=== PATIENT | male | born 2000 | race Caucasian/White ===

== ENCOUNTER 2018-05-07 20:42 | Observation (INO) | payer SELFPAY ==
[~2018-05-07] VITALS: Ht 177.8 cm; Wt 64.2 kg
[~2018-05-07 20:42] MED LIST: SULF1TAB35 PO
--- OUTSIDE RECORDS SUMMARY | 2018-05-07 20:48 | XMS REPORT ---
Author RAFAEL De Leon [facility] eClinicalWorks Address Unknown Phone Unavailable Care Team Providers Care Computational Chemist Name Role Phone RAFAEL LENNON CP Unavailable Allergies No Known Allergies Problems Problem Type Condition Code Onset Dates Condition Status Problem Impetigo 684 Active Problem Unspecified viral infection, in conditions classified elsewhere and of unspecified site 079.99 Active Problem Unspecified viral exanthem 057.9 Active Assessment Dental examination Z01.20 Active Problem Acute sinusitis, unspecified 461.9 Active Problem Cough 786.2 Active Medications No Known Medications Procedures Procedure Coding System Code Date TOPICAL FLUORIDE VARNISH CPT-4 D1206 Apr 06, 2015 PROPHYLAXIS - ADULT CPT-4 D1110 Apr 06, 2015 Results No Known Results Summary Purpose eClinicalWorks Submission
--- OUTSIDE RECORDS SUMMARY | 2018-05-07 20:49 | XMS REPORT | Continuity of Care Document ---
Author Author [facility] Address Unknown Phone Unavailable Allergies Active Description Code Type Severity Reaction Onset Reported/Identified Relationship to Patient Clinical Status Yes Penicillins Drug Allergy N/A N/A 04/29/2013 Yes No Known Drug Allergies [id number] Drug Allergy Unknown N/A 12/18/2015 Medications There is no data. Problems Date Dx Coded Attending Type Code Diagnosis Diagnosed By 04/29/2013 NATHAN AREVALO MD S 057.9 VIRAL EXANTHEM UNSPECIFIED 04/29/2013 NATHAN AREVALO MD S 684 IMPETIGO 04/29/2013 NATHAN AREVALO MD 057.9 VIRAL EXANTHEM UNSPECIFIED 04/29/2013 NATHAN AREVALO MD S 684 IMPETIGO 04/29/2013 TONI MARTIN DOA K 057.9 VIRAL EXANTHEM UNSPECIFIED 04/29/2013 MARTIN DO, THOMPSON K 684 IMPETIGO 04/29/2013 TONI MARTIN DOA K 057.9 VIRAL EXANTHEM UNSPECIFIED 04/29/2013 MARTIN DO THOMPSON K 684 IMPETIGO 04/29/2013 KATIUSKA CULTURE MANAGERAMALIA Foster L 057.9 VIRAL EXANTHEM UNSPECIFIED 04/29/2013 EATSANDRA CULTURE MANAGERNITISH FosterSON L 684 IMPETIGO 05/06/2013 TONI MARTIN DOA K 079.99 VIRAL SYNDROME 05/06/2013 MARTIN TONI DUDLEYA K 079.99 VIRAL SYNDROME 05/06/2013 EATON CULTURE MANAGERNITISH FosterSON L 079.99 VIRAL SYNDROME 06/21/2013 TONI MARTIN DOA K 461.9 SINUSITIS ACUTE 06/21/2013 MARTIN TONI DUDLEYA K 786.2 COUGH 06/21/2013 EATSANDRA CULTURE MANAGERAMALIA Foster L 461.9 SINUSITIS ACUTE 06/21/2013 EATON AMALIA BOJORQUEZ 786.2 COUGH 12/18/2015 KATHARINE KRUGER DO Ot R22.2 LOCALIZED SWELLING, MASS AND LUMP, TRUNK 12/18/2015 SASKIA KATHARINE DUDLEY Ot R59.0 LOCALIZED ENLARGED LYMPH NODES 12/18/2015 SASKIA KATHARINE DUDLEY Ot S10.91XA ABRASION OF UNSPECIFIED PART OF NECK, IN 12/18/2015 KATHARINE KRUGER DO Ot X58.XXXA EXPOSURE TO OTHER SPECIFIED FACTORS, INI 12/18/2015 KATHARINE KRUGER DO Ot Y92.[address] IN [facility] NON-INSTITUT (PRIVATE 12/18/2015 SASKIA KATHARINE DUDLEY Ot Y99.8 OTHER EXTERNAL CAUSE STATUS 12/21/2015 SASKIA KATHARINE DUDLEY Ot R22.2 LOCALIZED SWELLING, MASS AND LUMP, TRUNK 12/21/2015 SASKIA KATHARINE DUDLEY Ot R59.0 LOCALIZED ENLARGED LYMPH NODES 12/21/2015 KATHARINE KRUGER DO Ot S10.91XA ABRASION OF UNSPECIFIED PART OF NECK, IN 12/21/2015 KATHARINE KRUGER DO Ot X58.XXXA EXPOSURE TO OTHER SPECIFIED FACTORS, INI 12/21/2015 KATHARINE KRUGER DO Ot Y92.[address] IN [facility] NON-INSTITUT ([facility] 12/21/2015 SASKIA DUDLEY, KATHARINE K Ot Y99.8 OTHER EXTERNAL CAUSE STATUS Procedures There is no data. Results There is no data. Encounters ACCT No. Visit Date/Time Discharge Status Pt. Type Provider Facility Loc./Unit Complaint [id number] 07/24/2013 16:49:00 07/24/2013 23:59:59 [facility] Outpatient KATIUSKA MARYELLEN AMALIA L [id number] 06/21/2013 11:18:00 06/21/2013 23:59:59 [facility] Outpatient THOMPSON MARTIN DO [id number] 05/06/2013 11:21:00 05/06/2013 23:59:59 C[facility] Outpatient THOMPSON MARTIN DO [id number] 05/02/2013 14:42:00 05/02/2013 23:59:59 CLS Outpatient NATHAN AREVALO MD [id number] 04/29/2013 15:47:00 04/29/2013 23:59:59 [facility] Outpatient NATHAN AREVALO MD [id number] 12/18/2015 21:51:00 12/18/2015 22:48:00 DIS Emergency KATHARINE KRUGER DO Via [facility] ER BUMP ON NECK
[2018-05-07 21:45] LABS: BASOPHILS % (AUTO) 0 % (0-10); EOSINOPHILS # (AUTO) 0.1 10^3/uL (0.0-0.3); EOSINOPHILS % (AUTO) 1 % (0-10); HEMATOCRIT 42 % (40-54); HEMOGLOBIN 15.3 G/DL (13.3-17.7); LYMPHOCYTES # (AUTO) 1.5 X 10^3 (1.0-4.0); LYMPHOCYTES % (AUTO) 21 % (12-44); MEAN CORPUSCULAR HEMOGLOBIN 32 PG (25-34); MEAN CORPUSCULAR HGB CONC 37 G/DL (32-36); MEAN CORPUSCULAR VOLUME 86 FL (80-99); MEAN PLATELET VOLUME 10.1 FL (7.4-10.4); MONOCYTES # (AUTO) 0.7 X 10^3 (0.0-1.0); MONOCYTES % (AUTO) 11 % (0-12); NEUTROPHILS # (AUTO) 4.5 X 10^3 (1.8-7.8); NEUTROPHILS % (AUTO) 66 % (42-75); PLATELET COUNT 287 10^3/uL (130-400); RED BLOOD COUNT 4.82 10^6/uL (4.35-5.85); RED CELL DISTRIBUTION WIDTH 11.6 % (10.0-14.5); WHITE BLOOD COUNT 6.8 10^3/uL (4.3-11.0)
[2018-05-07 21:46] LABS: BILIRUBIN,URINE NEGATIVE (NEGATIVE); CLARITY,URINE CLEAR; COLOR,URINE YELLOW; GLUCOSE, URINE (UA) 4+ (NEGATIVE); KETONES,URINE NEGATIVE (NEGATIVE); LEUKOCYTE ESTERASE ,URINE NEGATIVE (NEGATIVE); NITRITE,URINE NEGATIVE (NEGATIVE); PH,URINE 7 (5-9); PROTEIN,URINE NEGATIVE (NEGATIVE); UROBILINOGEN,URINE NORMAL (NORMAL)
[2018-05-07] MEDS ORDERED: IOHEXOL 350 MG/ML 100 ML (OMNIPAQUE 350) VIAL IV ONE (22:00)
[2018-05-07] MEDS ORDERED: RECEIVED CONTRAST (Hold Metformin) IV SCH (22:00)
[2018-05-07] MEDS ORDERED: NS 100 ML (IVPB) BAG IV ONE (22:00)
[2018-05-07 22:04] LABS: ALANINE AMINOTRANSFERASE 19 U/L (0-55); ALBUMIN 4.7 GM/DL (3.2-4.5); ALKALINE PHOSPHATASE 129 U/L (40-136); AMYLASE 43 U/L (25-125); BUN/CREATININE RATIO 9; CALCIUM 9.6 MG/DL (8.5-10.1); CARBON DIOXIDE 23 MMOL/L (21-32); CHLORIDE 96 MMOL/L (98-107); CREATININE SERUM 1.33 MG/DL (0.60-1.30); GFR ESTIMATED > 60; LIPASE 84 U/L (8-78); POTASSIUM 4.2 MMOL/L (3.6-5.0); SODIUM 132 MMOL/L (135-145); TOTAL PROTEIN 7.7 GM/DL (6.4-8.2)
[2018-05-07 22:05] LABS: BACTERIA,URINE NEGATIVE /HPF; RBC,URINE 0-2 /HPF; WBC,URINE RARE /HPF
[2018-05-07 22:08] LABS: GLUCOSE 599 MG/DL (70-105)
[2018-05-07] MEDS: NS IV 1000 ML 1,000 ML IV SCH (22:41)
[2018-05-07] MEDS ORDERED: inSUlin (REGULAR) HUMAN 1 UNIT/0.01 ML (CHARGE PER UNIT) SC ONE (22:45)
--- NOTE | 2018-05-07 23:20 | ED Abdominal Pain ---
General Chief Complaint: Abdominal/GI Problems Stated Complaint: NAUSEA/STOMACH PAIN Nursing Triage Note: Pt ambulated to triage w/o difficulty. Pt reports lower abdominal pain, nausea and fatigue that began approximately one week ago. Pt denies any other symptoms. Pt reports not having a PCP. Source of Information: Patient Exam Limitations: No Limitations History of Present Illness Date Seen by Provider: May 07, 2018 Time Seen by Provider: 21:20 Initial Comments Patient is a 17-year-old male who presents to the emergency room with complaints of nausea, abdominal pain, fatigue that started 1 week ago. He denies any fever vomiting, diarrhea, constipation. He reports that he does not have a primary care provider. Timing/Duration: 1 Week [facility] Radiation: No Radiation Activities at Onset: None Associated Symptoms: Nausea/Vomiting (nausea) Allergies and Home Medications Allergies Uncoded Allergies: PENICILLIN (Allergy, Unknown, 05/07/18) Pt unsure. Siblings are allergic. Home Medications Sulfamethoxazole/Trimethoprim 1 Each Tablet, 1 EACH PO BID Prescribed by: KATHARINE KRUGER on 12/18/15 0588 Patient Home Medication List Home Medication List Reviewed: Yes Review of Systems Review of Systems Constitutional: see HPI; No dizziness, No fever; malaise Gastrointestinal: See HPI, Abdominal Pain; Denies Constipated, Denies Diarrhea ; Nausea; Denies Vomiting All Other Systems Reviewed Negative Unless Noted: Yes Past Ykavlvm-Xsryrj-Bmhqct Hx Past Med/Social Hx: Reviewed Nursing Past Med/Soc Hx Patient Social History Alcohol Use: Denies Use Recreational Drug Use: No Smoking Status: Current Everyday Smoker Type Used: Cigarettes 2nd Hand Smoke Exposure: Yes Recent Foreign Travel: No Contact w/Someone Who Travel: No Recent Infectious Disease Expo: No Recent Hopitalizations: No Ebola Symptoms: Fatigue, Stomach Pain Immunizations Up To Date Tetanus Booster (TDap): Less than 5yrs Seasonal Allergies Seasonal Allergies: No Past Medical History Surgeries: Yes (DENTAL /TEETH PULLED) Respiratory: No Cardiac: No Neurological: No Reproductive Disorders: No Gastrointestinal: No Musculoskeletal: No Endocrine: No Cancer: No Psychosocial: No Integumentary: No Blood Disorders: No Family Medical History Reviewed Nursing Family Hx Physical Exam Vital Signs Vital Signs - First Documented 05/07/18 21:11 Temp 98.4 Pulse 98 Resp 14 B/P (MAP) 117/62 Pulse Ox 91 O2 Delivery Room Air Capillary Refill : Height/Weight/BMI Height: 5'10.00" Weight: 150lbs. oz. 68.823903td; 21.09 BMI Method:Stated General Appearance: WD/WN, no apparent distress HEENT: PERRL/EOMI, normal ENT inspection, TMs normal, pharynx normal Respiratory: chest non-tender, lungs clear, normal breath sounds, no respiratory distress, no accessory muscle use Cardiovascular: normal peripheral pulses, regular rate, rhythm, no edema, no gallop, no JVD, no murmur Gastrointestinal: normal bowel sounds, soft, no organomegaly, no pulsatile mass , tenderness (left lower quadrant tenderness) Extremities: no pedal edema, normal capillary refill Neurologic/Psychiatric: alert, normal mood/affect, oriented x 3 Skin: normal color, warm/dry Progress/Results/Core Measures Results/Orders Lab Results Laboratory Tests Test 05/07/18 21:22 05/07/18 21:30 05/07/18 22:21 Range/Units Urine Color YELLOW Urine Clarity CLEAR Urine pH 7 5-9 Urine Specific [place] 1.010 L 1.016-1.022 Urine Protein NEGATIVE NEGATIVE Urine Glucose (UA) 4+ H NEGATIVE Urine Ketones NEGATIVE NEGATIVE Urine Nitrite NEGATIVE NEGATIVE Urine Bilirubin NEGATIVE NEGATIVE Urine Urobilinogen NORMAL NORMAL MG/DL Urine Leukocyte Esterase NEGATIVE NEGATIVE Urine RBC (Auto) 1+ H NEGATIVE Urine RBC 0-2 /HPF Urine WBC RARE /HPF Urine Crystals NONE /LPF Urine Bacteria NEGATIVE /HPF Urine Casts NONE /LPF Urine Mucus NEGATIVE /LPF Urine Culture Indicated NO White Blood Count 6.8 4.3-11.0 10^3/uL Red Blood Count 4.82 4.35-5.85 10^6/uL Hemoglobin 15.3 13.3-17.7 G/DL Hematocrit 42 40-54 % Mean Corpuscular Volume 86 80-99 FL Mean Corpuscular Hemoglobin 32 25-34 PG Mean Corpuscular Hemoglobin Concent 37 H 32-36 G/DL Red Cell Distribution Width 11.6 10.0-14.5 % Platelet Count 287 130-400 10^3/uL Mean Platelet Volume 10.1 7.4-10.4 FL Neutrophils (%) (Auto) 66 42-75 % Lymphocytes (%) (Auto) 21 12-44 % Monocytes (%) (Auto) 11 0-12 % Eosinophils (%) (Auto) 1 0-10 % Basophils (%) (Auto) 0 0-10 % Neutrophils # (Auto) 4.5 1.8-7.8 X 10^3 Lymphocytes # (Auto) 1.5 1.0-4.0 X 10^3 Monocytes # (Auto) 0.7 0.0-1.0 X 10^3 Eosinophils # (Auto) 0.1 0.0-0.3 10^3/uL Basophils # (Auto) 0.0 0.0-0.1 10^3/uL Sodium Level 132 L 135-145 MMOL/L Potassium Level 4.2 3.6-5.0 MMOL/L Chloride Level 96 L 98-107 MMOL/L Carbon Dioxide Level 23 21-32 MMOL/L Anion Gap 13 5-14 MMOL/L Blood Urea Nitrogen 12 7-18 MG/DL Creatinine 1.33 H 0.60-1.30 MG/DL Estimat Glomerular Filtration Rate > 60 BUN/Creatinine Ratio 9 Glucose Level 599 *H 70-105 MG/DL Calcium Level 9.6 8.5-10.1 MG/DL Corrected Calcium 8.5-10.1 MG/DL Total Bilirubin 1.0 0.1-1.0 MG/DL Aspartate Amino Transf (AST/SGOT) 16 5-34 U/L Alanine Aminotransferase (ALT/SGPT) 19 0-55 U/L Alkaline Phosphatase 129 40-136 U/L Total Protein 7.7 6.4-8.2 GM/DL Albumin 4.7 H 3.2-4.5 GM/DL Amylase Level 43 25-125 U/L Lipase 84 H 8-78 U/L Glucometer 500 *H 70-110 MG/DL My Orders Orders - CHAPO ARMAS Comprehensive Metabolic Panel (05/07/18 21:27) Lipase (05/07/18 21:27) Amylase (05/07/18 21:27) Saline Lock/Iv-Start (05/07/18 21:27) Cbc With Automated Diff (05/07/18 21:27) Ct Abdomen/Pelvis W (05/07/18 21:48) Iohexol Injection (Omnipaque 350 Mg/Ml 1 (05/07/18 22:00) Contrast Received (Contrast Received) (05/07/18 22:00) Ns (Ivpb) (Sodium Chloride 0.9% Ivpb Bag (05/07/18 22:00) Ns Iv 1000 Ml (Sodium Chloride 0.9%) (05/07/18 22:45) Insulin (Regular) Human (Humulin R (Per (05/07/18 22:45) Medications Given in ED Current Medications Medications Dose Ordered Sig/Thu Route Start Time Stop Time Status Last Admin Dose Admin Insulin Human Regular 10 unit ONCE ONCE SC 05/07/18 22:45 05/07/18 22:46 DC 05/07/18 22:46 10 UNIT Iohexol 100 ml ONCE ONCE IV 05/07/18 22:00 05/07/18 22:01 DC 05/07/18 22:12 100 ML Sodium Chloride 80 ml ONCE ONCE IV 05/07/18 22:00 05/07/18 22:01 DC 05/07/18 22:12 80 ML Vital Signs/I&O 05/07/18 21:11 Temp 98.4 Pulse 98 Resp 14 B/P (MAP) 117/62 Pulse Ox 91 O2 Delivery Room Air FSBG Bedside Testing Finger Stick Blood Glucose: 500 Blood Glucose Action Taken: Chapo Armas notified Progress Progress Note : Time: 22:08 Progress Note Lab reports blood glucose of 599 on peripheral blood draw. I informed the patient of this laboratory finding and he reports that he is always thought his blood sugar was low and he would eat something and that it would improve has never had a diagnosis or any testing done. He agrees to insulin subcutaneous at this time. IV fluids were also ordered. 2300: I have discussed the case with Dr. Schmidt at this time. He agrees to admit the patient to hospitalist services with diabetic education consult in the morning in the use of sliding scale insulin. The patient agrees with plan of care and plans for admission. Diagnostic Imaging Diagonstic Imaging: CT Plain Films/CT/US/NM/MRI: abdomen, pelvis Comments See STATRAD Report. Reviewed: Reviewed Night [facility] Study Departure Communication (Admissions) Time/Spoke to Admitting Phy: 23:00 Dr. Schmidt Impression Primary Impression: New onset type 1 diabetes mellitus, uncontrolled Disposition: 01 HOME, SELF-CARE Condition: Stable/Unchanged Admissions Decision to Admit Reason: Admit from ER (General) Decision to Admit/Date: May 07, 2018 Time/Decision to Admit Time: 23:00 Departure-Patient Inst. Referrals: NO,LOCAL PHYSICIAN (PCP/Family) Primary Care Physician CHAPO ARMAS May 07, 2018 23:20
[2018-05-08] MEDS ORDERED: ONDANSETRON 4 MG/2 ML (SDV) Z0FRAN IV PRN (01:45)
[2018-05-08] MEDS ORDERED: ACETAMINOPHEN 500 MG TAB (TYLENOL) PO PRN (01:45)
[2018-05-08] MEDS: NS IV 1000 ML 1,000 ML IV SCH ×3 (02:07→08:51)
[2018-05-08 04:00] VITALS: BP 118/55
[2018-05-08 05:38] LABS: BASOPHILS % (AUTO) 0 % (0-10); EOSINOPHILS # (AUTO) 0.1 10^3/uL (0.0-0.3); EOSINOPHILS % (AUTO) 2 % (0-10); HEMATOCRIT 37 % (40-54); HEMOGLOBIN 13.8 G/DL (13.3-17.7); LYMPHOCYTES # (AUTO) 1.8 X 10^3 (1.0-4.0); LYMPHOCYTES % (AUTO) 22 % (12-44); MEAN CORPUSCULAR HEMOGLOBIN 32 PG (25-34); MEAN CORPUSCULAR HGB CONC 37 G/DL (32-36); MEAN CORPUSCULAR VOLUME 87 FL (80-99); MEAN PLATELET VOLUME 10.1 FL (7.4-10.4); MONOCYTES # (AUTO) 0.9 X 10^3 (0.0-1.0); MONOCYTES % (AUTO) 10 % (0-12); NEUTROPHILS # (AUTO) 5.4 X 10^3 (1.8-7.8); NEUTROPHILS % (AUTO) 66 % (42-75); PLATELET COUNT 274 10^3/uL (130-400); RED BLOOD COUNT 4.25 10^6/uL (4.35-5.85); RED CELL DISTRIBUTION WIDTH 11.8 % (10.0-14.5); WHITE BLOOD COUNT 8.2 10^3/uL (4.3-11.0)
[2018-05-08 05:57] LABS: ALANINE AMINOTRANSFERASE 15 U/L (0-55); ALBUMIN 3.8 GM/DL (3.2-4.5); ALKALINE PHOSPHATASE 95 U/L (40-136); BILIRUBIN,TOTAL 0.7 MG/DL (0.1-1.0); BUN/CREATININE RATIO 11; CALCIUM 8.7 MG/DL (8.5-10.1); CARBON DIOXIDE 22 MMOL/L (21-32); CHLORIDE 104 MMOL/L (98-107); CREATININE SERUM 1.01 MG/DL (0.60-1.30); GFR ESTIMATED > 60; GLUCOSE 371 MG/DL (70-105); POTASSIUM 3.7 MMOL/L (3.6-5.0); SODIUM 135 MMOL/L (135-145)
[2018-05-08] MEDS: inSUlin ASPART (NovoLOG) 1 UNIT/0.01 ML (CHARGE PER UNIT) SC SCH ×3 (06:30→11:13)
[2018-05-08] MEDS ORDERED: FLU QUADRIvalent (5+ YOA) 2018-2019 (AFLURIA) 0.5 ML IM ONE (07:15)
--- NOTE | 2018-05-08 08:06 | Diagnostic Imaging Report ---
PROCEDURE: CT abdomen and pelvis with contrast. TECHNIQUE: Multiple contiguous axial images were obtained through the abdomen and pelvis after administration of intravenous contrast. INDICATION: Abdominal pain, nausea and fatigue. No priors. There is no appendicitis. There is no opaque urinary tract stone. There is no hydronephrosis. Liver, gallbladder and bile ducts, spleen, adrenals, pancreas unremarkable. The gallbladder is contracted. No perienteric or pericolonic edema. No inflammatory process. No bowel obstruction, pneumatosis or free gas. The osseous structures are nonacute. At the most superior cuts of today's exam, there is partial visualization of a sub-solid mixed density nodule in the left lower lobe measuring 12 mm. This may reflect a small focus of pneumonia. Followup radiographs of the chest recommended, however, within 1 to 2 weeks' time. IMPRESSION: 1. No abdominal pelvic abnormality. 2. Left basilar pulmonary nodular density, probably an inflammatory focus but warranting radiographic followup. Dictated by: Dictated on workstation # [id number]
[2018-05-08 08:49] VITALS: BP 124/77
[2018-05-08] MEDS ORDERED: inSUlin DETERMIR 1 UNIT/0.01 ML (LEVEMIR) CHARGE PER UNIT SQ SCH (09:00)
[2018-05-08] MEDS ORDERED: INSU100I14 SQ (10:45)
[2018-05-08] MEDS ORDERED: INSU100I29 SQ (10:45)
--- NOTE | 2018-05-08 10:49 | Discharge Inst-Simple/Standard ---
Discharge Inst-Standard Discharge Medications New, Converted or Re-Newed RX: Transmitted to Pharmacy Patient Instructions/Follow Up Plan of Care/Instructions/FU: Please continue to take your medications as written. It is important to take your insulin everyday. Please follow up with [facility] on 05/10 at 820am as scheduled. Activity as Tolerated: Yes Discharge Diet: ADA Diet Return to The Hospital For: Abdominal pain, nausea, vomiting, confusion, if you feel you are getting worse. Planned Outpatient Orders/Ref. Pneu Vac Indicated: Yes JASON CAMACHO MD May 08, 2018 10:49
--- NOTE | 2018-05-08 10:50 | Short Stay Summary-Hospitalist ---
History of Present Illness HPI/Chief Complaint Pt presented to the ER due to abdominal pain and nausea. He states that his symptoms started 1 week ago and continued to get worse prompting him to seek evaluation in the ER. CT abd/pelvis was negative but he was incidentally found to have a blood glucose of 599 and was admitted for initiation of insulin. He states he knew he had blood sugars problems in the past but never follow up on them and was unsure if it was because his blood sugars were high or low. He denies any family history of diabetes. He denies any other medical problems. He states he feels better today and denies any pain. Source: patient Exam Limitations: no limitations Date Seen 05/08/18 Time Seen by a Provider: 10:50 Attending Physician Papa Schmidt MD PCP No,Local Physician Referring Physician Date of Admission May 07, 2018 at 23:00 Home Medications & Allergies Home Medications Reviewed patient Home Medication Reconciliation performed by pharmacy medication reconciliations ecologist technician and/or nursing. Patients Allergies have been reviewed. Allergies Allergies Uncoded Allergies PENICILLIN ( Adverse Reaction, Unknown, has never had- siblings with unknown allergy, 05/08/18) Past Hythwud-Qwfeqi-Ttubnc Hx Past Med/Social Hx: Reviewed Nursing Past Med/Soc Hx Patient Social History Employed/Student: employed Alcohol Use: Occasionally Uses Number of Drinks Today: 0 Alcohol Beverage of Choice: Beer, Whiskey Recreational Drug Use: Yes (hx, ) Smoking Status: Current Everyday Smoker Cigaretts per day: 10 Type Used: Cigarettes, Smokeless Tobacco 2nd Hand Smoke Exposure: Yes Physical Abuse Screen: No Sexual Abuse: No Recent Foreign Travel: No Contact w/other who traveled: No Recent Hopitalizations: No Recent Infectious Disease Expo: No Immunizations Up To Date Tetanus Booster (TDap): Less than 5yrs Seasonal Allergies Seasonal Allergies: No Past Medical History Reproductive: No Sexually Transmitted Disease: No HIV/AIDS: No History of Blood Disorders: No Family History Reviewed Nursing Family Hx Review of Systems Constitutional: No chills, No fever EENTM: No blurred vision, No double vision, No nose congestion, No throat pain Respiratory: No cough, No dyspnea on exertion, No short of breath Cardiovascular: No chest pain, No edema, No palpitations Gastrointestinal: see HPI, abdominal pain; No loss of appetite; nausea; No vomiting Genitourinary: No dysuria, No frequency Musculoskeletal: No joint pain, No muscle pain Skin: No lesions, No rash Psychiatric/Neurological: Denies Headache, Denies Numbness, Denies Tingling Physical Exam Physical Exam Vital Signs Vital Signs - First Documented 05/07/18 05/08/18 21:11 01:50 Temp 98.4 Pulse 98 Resp 14 B/P (MAP) 117/62 Pulse Ox 91 O2 Delivery Room Air O2 Flow Rate 97.00 Capillary Refill : Height, Weight, BMI Height: 5'10.00" Weight: 141lbs. 8.0oz. 64.585325mc; 20.3 BMI Method:Stated General Appearance: No Apparent Distress, WD/WN HEENT: PERRL/EOMI, Moist Mucous Membranes Neck: Non Tender, Supple Respiratory: Lungs Clear, No Respiratory Distress Cardiovascular: Regular Rate, Rhythm, No Murmur Gastrointestinal: Normal Bowel Sounds, Non Tender, Soft Extremity: Normal Capillary Refill, No Calf Tenderness Neurologic/Psychiatric: Alert, Oriented x3, Normal Mood/Affect Skin: Normal Color, Warm/Dry Results Results/Procedures Labs Laboratory Tests 05/07/18 21:30 05/08/18 05:18 Patient resulted labs reviewed. Short Stay Diagnosis Discharge Diagnosis-Short Stay Admission Diagnosis Hyperglycemia Final Discharge Diagnosis Hyperglycemia New onset diabetes Conclusion Plan Hyperglycemia with new onset diabetes- likely type 1 Treated with regular insulin in the ER Started on Levemir for basal insulin and Novolog prandially Education consulted, appreciate recs Paient education on diabetes, carb counting, and insulin injections Clinical Quality Measures DVT/VTE Risk/Contraindication: Risk Factor Score Per Nursin RFS Level Per Nursing on Admit: 1=Low/No VTE PPX JASON CAMACHO MD May 08, 2018 10:50
[2018-05-08 12:53] VITALS: BP 126/67
== END 2018-05-08 12:31 | disposition home or self-care (01) ==
LOC: EDUNIT# 20:42 → ER 20:44 → 4TH 23:00
PROVIDERS: ADMIT Internal Medicine; ATTEND Internal Medicine
DX: E10.65 Type 1 diabetes mellitus with hyperglycemia (principal); F17.210 Nicotine dependence, cigarettes, uncomplicated; Z79.4 Long term (current) use of insulin; Z88.0 Allergy status to penicillin
CPT/HCPCS: 36415; 74177; 80053; 81000; 82150; 82962; 83036; 83525; 83690; 85025; G0378

== ENCOUNTER 2018-11-28 17:04 | Emergency (ER) | payer SELFPAY ==
[~2018-11-28] VITALS: Ht 175.3 cm; Wt 65.8 kg
[~2018-11-28 17:04] MED LIST changes: +INSU100I14 SQ; +INSU100I29 SQ
[2018-11-28] MEDS ORDERED: inSUlin (REGULAR) HUMAN 1 UNIT/0.01 ML (CHARGE PER UNIT) SC STA ×2 (17:30→18:28)
[2018-11-28] MEDS ORDERED: NS IV 1000 ML 1,000 ML IV SCH ×2 (17:30→18:25)
[2018-11-28 17:45] LABS: BASOPHILS % (AUTO) 0 % (0-10); EOSINOPHILS # (AUTO) 0.1 10^3/uL (0.0-0.3); EOSINOPHILS % (AUTO) 1 % (0-10); HEMATOCRIT 46 % (40-54); HEMOGLOBIN 16.9 G/DL (13.3-17.7); LYMPHOCYTES # (AUTO) 1.9 X 10^3 (1.0-4.0); LYMPHOCYTES % (AUTO) 20 % (12-44); MEAN CORPUSCULAR HEMOGLOBIN 31 PG (25-34); MEAN CORPUSCULAR HGB CONC 37 G/DL (32-36); MEAN CORPUSCULAR VOLUME 82 FL (80-99); MONOCYTES # (AUTO) 0.8 X 10^3 (0.0-1.0); MONOCYTES % (AUTO) 9 % (0-12); NEUTROPHILS # (AUTO) 6.5 X 10^3 (1.8-7.8); NEUTROPHILS % (AUTO) 70 % (42-75); PLATELET COUNT 308 10^3/uL (130-400); RED CELL DISTRIBUTION WIDTH 12.1 % (10.0-14.5); WHITE BLOOD COUNT 9.3 10^3/uL (4.3-11.0)
--- NOTE | 2018-11-28 17:46 | ED General ---
General Chief Complaint: Glucose Problems Stated Complaint: HIGH BLOOD SUGAR Nursing Triage Note: PT AMBULATES TO [facility] WITH CONCERNS OF HIGH BLOOD GLUCOSE. PT STATED HE HASN'T CHECKED IT IN "A COUPLE MONTHS" AND HASN'T TAKEN INSULIN SINCE MAY. PT ALSO COMPLAINS OF STOMACH PAIN, POLYDIPSIA, AND POLYURIA. INTIAL BLOOD SUGAR 531. Nursing Sepsis Screen: No Definite Risk History of Present Illness Date Seen by Provider: Nov 28, 2018 Time Seen by Provider: 17:30 Initial Comments 18-year-old male was diagnosed in the last 6-9 months is a type I diabetic. He was prescribed insulin and a glucometer upon discharge and has not established with a primary care provider. He reports not using his glucometer or insulin and "a few minutes" when asked to elaborate, possibly May or Jun since he took insulin. He got in some "trouble with truck" and it has been impounded since July or August, they won't let him get his glucometer out of it. He has been noticing polyuria, polydipsia and polyphagia. He used his mom's glucometer today that the first reading was too high and the second was > 500. He is also complaining of heartburn. Timing/Duration: 1-3 Hours Severity: Mild Associated Systoms: No Chest Pain, No Cough, No Diaphoresis, No Fever/Chills, No Headaches, No Loss of Appetite; Malaise; No Nausea/Vomiting, No Rash, No Seizure, No Shortness of Air, No Syncope, No Weakness Allergies and Home Medications Allergies Uncoded Allergies: PENICILLIN (Adverse Reaction, Unknown, has never had- siblings with unknown allergy, 05/08/18) Home Medications Insulin Aspart 300 Units/3 Ml Solution, 5 UNITS SQ AC Prescribed by: JASON CAMACHO on 05/08/18 1045 Insulin Detemir 100 Unit/1 Ml Insuln.pen, 10 UNIT SQ DAILY Prescribed by: JASON CAMACHO on 05/08/18 1045 Patient Home Medication List Home Medication List Reviewed: Yes Review of Systems Review of Systems Constitutional: no symptoms reported, see HPI EENTM: see HPI, no symptoms reported Respiratory: no symptoms reported, see HPI Cardiovascular: no symptoms reported, see HPI Gastrointestinal: see HPI, heartburn Genitourinary: see HPI, frequency Musculoskeletal: no symptoms reported, see HPI Skin: no symptoms reported, see HPI Immunological/Allergic: no symptoms reported, see HPI All Other Systems Reviewed Negative Unless Noted: Yes Past Xvjuuan-Hnuyhu-Dfgoyc Hx Past Med/Social Hx: Reviewed Nursing Past Med/Soc Hx Patient Social History Alcohol Beverage of Choice: Beer, Whiskey Type Used: Cigarettes, Smokeless Tobacco 2nd Hand Smoke Exposure: Yes Recent Foreign Travel: No Contact w/Someone Who Travel: No Recent Infectious Disease Expo: No Recent Hopitalizations: No Immunizations Up To Date Tetanus Booster (TDap): Less than 5yrs Seasonal Allergies Seasonal Allergies: No Past Medical History Respiratory: No Cardiac: No Neurological: No Reproductive Disorders: No Sexually Transmitted Disease: No HIV/AIDS: No Genitourinary: No Gastrointestinal: No Musculoskeletal: No Endocrine: Yes (new dx) HEENT: No Cancer: No Psychosocial: No Integumentary: No Blood Disorders: No Physical Exam Vital Signs Vital Signs - First Documented 11/28/18 17:17 Temp 97.2 Pulse 90 Resp 18 B/P (MAP) 125/84 (98) Pulse Ox 99 O2 Delivery Room Air Capillary Refill : Less Than 3 Seconds Height, Weight, BMI Height: 5'9.00" Weight: 145lbs. 8.0oz. 65.164683ct; 20.3 BMI Method:Stated General Appearance: No Apparent Distress, WD/WN Eyes: Bilateral Eye Normal Inspection, Bilateral Eye PERRL, Bilateral Eye EOMI HEENT: PERRL/EOMI, TMs Normal, Normal ENT Inspection, Pharynx Normal, Other (no n ketotic breath) Neck: Full Range of Motion, Normal Inspection, Non Tender, Supple Respiratory: Chest Non Tender, Lungs Clear, Normal Breath Sounds Cardiovascular: Regular Rate, Rhythm, No Murmur, Normal Peripheral Pulses Gastrointestinal: Normal Bowel Sounds, Non Tender, Soft Neurologic/Psychiatric: Alert, Oriented x3, No Motor/Sensory Deficits, Normal Mood/Affect Skin: Normal Color, Warm/Dry Lymphatic: No Adenopathy Progress/Results/Core Measures Suspected Sepsis Recent Fever Within 48 Hours: No Infection Criteria Present: None New/Unexplained Altered Menta: No Sepsis Screen: No Definite Risk SIRS Temperature:97.2 Pulse: 90 Respiratory Rate: 18 Laboratory Tests 11/28/18 17:30: White Blood Count 9.3 Blood Pressure 125 /84 Mean: 98 Laboratory Tests 11/28/18 17:30: Creatinine 1.53H, Platelet Count 308, Total Bilirubin 0.7 Results/Orders Lab Results Laboratory Tests Test 11/28/18 17:22 11/28/18 17:30 11/28/18 18:05 11/28/18 18:27 Range/Units Glucometer 531 *H 445 *H 70-110 MG/DL White Blood Count 9.3 4.3-11.0 10^3/uL Red Blood Count 5.55 4.35-5.85 10^6/uL Hemoglobin 16.9 13.3-17.7 G/DL Hematocrit 46 40-54 % Mean Corpuscular Volume 82 80-99 FL Mean Corpuscular Hemoglobin 31 25-34 PG Mean Corpuscular Hemoglobin Concent 37 H 32-36 G/DL Red Cell Distribution Width 12.1 10.0-14.5 % Platelet Count 308 130-400 10^3/uL Mean Platelet Volume 11.0 H 7.4-10.4 FL Neutrophils (%) (Auto) 70 42-75 % Lymphocytes (%) (Auto) 20 12-44 % Monocytes (%) (Auto) 9 0-12 % Eosinophils (%) (Auto) 1 0-10 % Basophils (%) (Auto) 0 0-10 % Neutrophils # (Auto) 6.5 1.8-7.8 X 10^3 Lymphocytes # (Auto) 1.9 1.0-4.0 X 10^3 Monocytes # (Auto) 0.8 0.0-1.0 X 10^3 Eosinophils # (Auto) 0.1 0.0-0.3 10^3/uL Basophils # (Auto) 0.0 0.0-0.1 10^3/uL Sodium Level 128 L 135-145 MMOL/L Potassium Level 3.7 3.6-5.0 MMOL/L Chloride Level 88 L 98-107 MMOL/L Carbon Dioxide Level 14 L 21-32 MMOL/L Anion Gap 26 H 5-14 MMOL/L Blood Urea Nitrogen 11 7-18 MG/DL Creatinine 1.53 H 0.60-1.30 MG/DL Estimat Glomerular Filtration Rate 58 BUN/Creatinine Ratio 7 Glucose Level 597 *H 70-105 MG/DL Calcium Level 10.7 H 8.5-10.1 MG/DL Corrected Calcium 8.5-10.1 MG/DL Total Bilirubin 0.7 0.1-1.0 MG/DL Aspartate Amino Transf (AST/SGOT) 12 5-34 U/L Alanine Aminotransferase (ALT/SGPT) 19 0-55 U/L Alkaline Phosphatase 156 H 40-136 U/L Total Protein 8.7 H 6.4-8.2 GM/DL Albumin 5.0 H 3.2-4.5 GM/DL Urine Color YELLOW Urine Clarity CLEAR Urine pH 5 5-9 Urine Specific [place] 1.025 H 1.016-1.022 Urine Protein NEGATIVE NEGATIVE Urine Glucose (UA) 4+ H NEGATIVE Urine Ketones 4+ H NEGATIVE Urine Nitrite NEGATIVE NEGATIVE Urine Bilirubin NEGATIVE NEGATIVE Urine Urobilinogen NORMAL NORMAL MG/DL Urine Leukocyte Esterase NEGATIVE NEGATIVE Urine RBC (Auto) NEGATIVE NEGATIVE Urine RBC RARE /HPF Urine WBC NONE /HPF Urine Squamous Epithelial Cells RARE /HPF Urine Crystals NONE /LPF Urine Bacteria NEGATIVE /HPF Urine Casts NONE /LPF Urine Mucus NEGATIVE /LPF Urine Culture Indicated NO Urine Opiates Screen NEGATIVE NEGATIVE Urine Oxycodone Screen NEGATIVE NEGATIVE Urine Methadone Screen NEGATIVE NEGATIVE Urine Propoxyphene Screen NEGATIVE NEGATIVE Urine Barbiturates Screen NEGATIVE NEGATIVE Ur Tricyclic Antidepressants Screen NEGATIVE NEGATIVE Urine Phencyclidine Screen NEGATIVE NEGATIVE Urine Amphetamines Screen NEGATIVE NEGATIVE Urine Methamphetamines Screen NEGATIVE NEGATIVE Urine Benzodiazepines Screen NEGATIVE NEGATIVE Urine Cocaine Screen NEGATIVE NEGATIVE Urine Cannabinoids Screen NEGATIVE NEGATIVE Test 11/28/18 19:21 Range/Units Glucometer 373 H 70-110 MG/DL My Orders Orders - ATILIO PEREZ Accucheck Stat ONCE (11/28/18 17:13) Cbc With Automated Diff (11/28/18 17:13) Comprehensive Metabolic Panel (11/28/18 17:13) Ua Culture If Indicated (11/28/18 17:13) Ed Iv/Invasive Line Start (11/28/18 17:30) Ns Iv 1000 Ml (Sodium Chloride 0.9%) (11/28/18 17:30) Insulin (Regular) Human (Humulin R (Per (11/28/18 17:30) Drug Screen Stat (Urine) (11/28/18 17:30) Accucheck Stat ONCE (11/28/18 18:24) Ed Iv/Invasive Line Start (11/28/18 18:25) Ns Iv 1000 Ml (Sodium Chloride 0.9%) (11/28/18 18:25) Insulin (Regular) Human (Humulin R (Per (11/28/18 18:28) Pantoprazole Injection (Protonix Injecti (11/28/18 18:45) Accucheck Stat ONCE (11/28/18 19:14) Medications Given in ED Current Medications Medications Dose Ordered Sig/Thu Route Start Time Stop Time Status Last Admin Dose Admin Pantoprazole 40 mg ONCE ONCE IV 11/28/18 18:45 11/28/18 18:46 DC 11/28/18 18:45 40 MG Vital Signs/I&O 11/28/18 11/28/18 17:17 19:30 Temp 97.2 97.2 Pulse 90 70 Resp 18 18 B/P (MAP) 125/84 (98) 117/93 (101) Pulse Ox 99 99 O2 Delivery Room Air Capillary Refill : Less Than 3 Seconds Blood Pressure Mean: 98 Point of Care Testing Finger Stick Blood Glucose: 531 Blood Glucose Action Taken: Isaak Perez DNP notified Progress Note : Time: 17:30 Progress Note Patient seen and evaluated, will obtain labs, normal saline 1 L per IV, 10 units regular insulin subcutaneously. Accu-Chek 531. 1824 Accu-Chek 445, will administer 1 more liter of normal saline per IV, and 10 units of regular insulin subcutaneously. Protonix 40 mg IV for heartburn. Patient reports to be feeling better. He is eating cheese. 1914 Accu-Chek 373. Discussed with patient the importance of giving his insulin as prescribed and establishing with [facility]. He understands that he is causing permanent damage his body by not managing his diabetes. Spoke to [facility] and they sell the flex pen needles that he needs to administer his insulin. He reports having a box but unsure where they are. 1919 discharge instructions and return precautions reviewed with the patient. Discussed importance of giving himself the long-acting insulin before bed tonight. Discussed diabetic diet. And keeping a log of his blood sugars. Departure Impression Primary Impression: Hyperglycemia Additional Impression: Type 1 diabetes mellitus Qualified Codes: E10.9 - Type 1 diabetes mellitus without complications Disposition: HOME, SELF-CARE Condition: Improved Departure-Patient Inst. Decision time for Depature: 19:20 Referrals: NO,LOCAL PHYSICIAN (PCP/Family) Primary Care Physician Patient Instructions: Diabetes Type 1, Adult (DC) Add. Discharge Instructions: Go to [facility] and they will help you with getting needles for your insulin pens. Resume your NovoLog Flex 10 5 units subcutaneously before meals and Levemir Flex touch 10 units subcutaneously before bed. Check your blood sugar 3-4 times daily and record it. Call [facility] tomorrow morning and obtain an appointment or go to their walk-in clinic to become established there. Follow a high protein/low carbohydrate diet. Increase water intake in your diet. Return to emergency department for blood sugars over 500, new problems or concerns. All discharge instructions reviewed with patient and/or family. Voiced understanding. ATILIO PEREZ Nov 28, 2018 17:46
[2018-11-28 18:00] LABS: ALANINE AMINOTRANSFERASE 19 U/L (0-55); ALKALINE PHOSPHATASE 156 U/L (40-136); BILIRUBIN,TOTAL 0.7 MG/DL (0.1-1.0); BUN/CREATININE RATIO 7; CALCIUM 10.7 MG/DL (8.5-10.1); CARBON DIOXIDE 14 MMOL/L (21-32); CHLORIDE 88 MMOL/L (98-107); CREATININE SERUM 1.53 MG/DL (0.60-1.30); GFR ESTIMATED 58; POTASSIUM 3.7 MMOL/L (3.6-5.0); SODIUM 128 MMOL/L (135-145); TOTAL PROTEIN 8.7 GM/DL (6.4-8.2)
[2018-11-28 18:02] LABS: GLUCOSE 597 MG/DL (70-105)
[2018-11-28 18:11] LABS: BILIRUBIN,URINE NEGATIVE (NEGATIVE); CLARITY,URINE CLEAR; COLOR,URINE YELLOW; GLUCOSE, URINE (UA) 4+ (NEGATIVE); KETONES,URINE 4+ (NEGATIVE); LEUKOCYTE ESTERASE ,URINE NEGATIVE (NEGATIVE); NITRITE,URINE NEGATIVE (NEGATIVE); PH,URINE 5 (5-9); PROTEIN,URINE NEGATIVE (NEGATIVE); UROBILINOGEN,URINE NORMAL (NORMAL)
[2018-11-28 18:18] LABS: BACTERIA,URINE NEGATIVE /HPF; RBC,URINE RARE /HPF; SQUAMOUS EPITHELIAL CELL,UR RARE /HPF
[2018-11-28 18:23] LABS: AMPHETAMINE SCREEN, URINE NEGATIVE (NEGATIVE); BARBITURATE SCREEN URINE NEGATIVE (NEGATIVE); BENZODIAZEPINES SCREEN URINE NEGATIVE (NEGATIVE); CANNABINOID SCREEN, URINE NEGATIVE (NEGATIVE); COCAINE SCREEN URINE NEGATIVE (NEGATIVE); METHADONE STAT NEGATIVE (NEGATIVE); METHAMPHETAMINE SCREEN URINE S NEGATIVE (NEGATIVE); OPIATE SCREEN URINE NEGATIVE (NEGATIVE); OXYCODONE STAT NEGATIVE (NEGATIVE); PROPOXYPHENE STAT NEGATIVE (NEGATIVE); TRICYCLIC ANTIDEPRESSANTS SCRE NEGATIVE (NEGATIVE)
[2018-11-28] MEDS ORDERED: PANTOPRAZOLE 40 MG (PROTONIX) VIAL IV ONE (18:45)
[2018-11-28 19:30] VITALS: BP 117/93
== END 2018-11-28 19:30 | disposition home or self-care (01) ==
LOC: EDUNIT# 17:04 → ER 17:05
DX: E10.65 Type 1 diabetes mellitus with hyperglycemia (principal); Z79.4 Long term (current) use of insulin; Z88.0 Allergy status to penicillin
CPT/HCPCS: 36415; 80053; 80306; 81000; 82962; 85025; 96361; 96372; 96374

== ENCOUNTER 2019-06-27 19:46 | Emergency (ER) | payer SELFPAY ==
[~2019-06-27] VITALS: Ht 175 cm; Wt 63.0 kg
[2019-06-27] MEDS ORDERED: NS IV 1000 ML 1,000 ML IV SCH ×2 (20:30→21:30)
[2019-06-27] MEDS ORDERED: ONDANSETRON 4 MG/2 ML (SDV) Z0FRAN IVP ONE (20:30)
[2019-06-27 20:34] LABS: BASOPHILS % (AUTO) 0 % (0-10); EOSINOPHILS % (AUTO) 0 % (0-10); HEMATOCRIT 47 % (40-54); HEMOGLOBIN 16.3 G/DL (13.3-17.7); LYMPHOCYTES # (AUTO) 1.4 X 10^3 (1.0-4.0); LYMPHOCYTES % (AUTO) 13 % (12-44); MEAN CORPUSCULAR HEMOGLOBIN 32 PG (25-34); MEAN CORPUSCULAR HGB CONC 35 G/DL (32-36); MEAN CORPUSCULAR VOLUME 92 FL (80-99); MEAN PLATELET VOLUME 10.6 FL (7.4-10.4); MONOCYTES # (AUTO) 1.2 X 10^3 (0.0-1.0); MONOCYTES % (AUTO) 11 % (0-12); NEUTROPHILS % (AUTO) 76 % (42-75); PLATELET COUNT 260 10^3/uL (130-400); RED CELL DISTRIBUTION WIDTH 13.2 % (10.0-14.5); WHITE BLOOD COUNT 10.6 10^3/uL (4.3-11.0)
[2019-06-27 20:47] LABS: ALANINE AMINOTRANSFERASE 19 U/L (0-55); ALBUMIN 4.9 GM/DL (3.2-4.5); ALKALINE PHOSPHATASE 108 U/L (40-136); AMYLASE 43 U/L (25-125); BILIRUBIN,TOTAL 0.5 MG/DL (0.1-1.0); BUN/CREATININE RATIO 7; CALCIUM 9.8 MG/DL (8.5-10.1); CHLORIDE 104 MMOL/L (98-107); CREATININE SERUM 1.53 MG/DL (0.60-1.30); GFR ESTIMATED 58; GLUCOSE 300 MG/DL (70-105); LIPASE 17 U/L (8-78); POTASSIUM 4.2 MMOL/L (3.6-5.0); SODIUM 136 MMOL/L (135-145); TOTAL PROTEIN 8.5 GM/DL (6.4-8.2)
[2019-06-27 20:50] LABS: CARBON DIOXIDE 7 MMOL/L (21-32)
[2019-06-27 21:10] LABS: BILIRUBIN,URINE NEGATIVE (NEGATIVE); CLARITY,URINE CLEAR; COLOR,URINE YELLOW; GLUCOSE, URINE (UA) 2+ (NEGATIVE); KETONES,URINE 3+ (NEGATIVE); LEUKOCYTE ESTERASE ,URINE NEGATIVE (NEGATIVE); NITRITE,URINE NEGATIVE (NEGATIVE); PROTEIN,URINE 1+ (NEGATIVE)
[2019-06-27] MEDS ORDERED: inSUlin (REGULAR) HUMAN 1 UNIT/0.01 ML (CHARGE PER UNIT) IV ONE ×2 (21:15)
[2019-06-27 21:19] LABS: ABG BASE EXCESS -20.6 MMOL/L (-2.5-2.5); ABG OXYGEN SATURATION 85 % (94-100); ABG PCO2 24 MMHG (35-45); ABG PO2 54 MMHG (79-93); ABG TCO2 7.9 MMOL/L (21.0-31.0)
[2019-06-27 21:21] LABS: ABG PH 7.11 (7.37-7.43); ALLENS TEST YES-POS; INSPIRED O2 ROOM AIR; PATIENT TEMP 98.3; VENTILATOR NO
[2019-06-27 21:39] LABS: BACTERIA,URINE FEW /HPF
[2019-06-27 21:40] LABS: RBC,URINE 0-2 /HPF
--- NOTE | 2019-06-27 21:41 | ED General ---
General Chief Complaint: General Problems/Pain Stated Complaint: VOMITTING, Nursing Triage Note: PATIENT HERE WITH SIGNIFICANT OTHER WHO IS DOING MOST OF THE TALKING. SHE STATES THAT HE HAS BEEN LETHARGIC FOR DAYS, COUGHING UP GREEN MUCUS, GREEN DRAINAGE FROM NOSE AND EYES, EAR PAIN, BELLY PAIN, VOMITING. PATIENT VERY LETHARGIC AND SLOW TO RESPOND. Nursing Sepsis Screen: Possible Severe Sepsis Risk Source of Information: Patient Exam Limitations: No Limitations History of Present Illness Date Seen by Provider: Jun 27, 2019 Time Seen by Provider: 20:20 Initial Comments 19-year-old male who presents to the emergency room with complaints of nausea and vomiting and abdominal cramping that started this morning. The patient is a noncompliant type I diabetic and does not check his blood sugars but reports "doses insulin off the way he feels". He has had upper respiratory illness for the past few days, watery eyes, runny nose, cough. He denies fevers over the course of his illness. He is lethargic on arrival to the emergency room. Timing/Duration: 1 Week Associated Systoms: Cough, Nausea/Vomiting Allergies and Home Medications Allergies Uncoded Allergies: PENICILLIN (Adverse Reaction, Unknown, has never had- siblings with unknown allergy, 05/08/18) Home Medications Insulin Aspart 300 Units/3 Ml Solution, 5 UNITS SQ AC Prescribed by: JASON CAMACHO on 05/08/18 1045 Insulin Detemir 100 Unit/1 Ml Insuln.pen, 10 UNIT SQ DAILY Prescribed by: JASON CAMACHO on 05/08/18 1045 Patient Home Medication List Home Medication List Reviewed: Yes Review of Systems Review of Systems Constitutional: see HPI; No chills, No fever EENTM: see HPI, nose congestion Respiratory: see HPI, cough All Other Systems Reviewed Negative Unless Noted: Yes Past Adzxmjp-Xrtmfd-Lchqvj Hx Past Med/Social Hx: Reviewed Nursing Past Med/Soc Hx Patient Social History Alcohol Use: Denies Use Alcohol Beverage of Choice: Whiskey Recreational Drug Use: No Smoking Status: Current Everyday Smoker Type Used: Cigarettes 2nd Hand Smoke Exposure: Yes Recent Foreign Travel: No Contact w/Someone Who Travel: No Recent Infectious Disease Expo: No Recent Hopitalizations: No Physical Abuse: No Sexual Abuse: No Immunizations Up To Date Tetanus Booster (TDap): Less than 5yrs Seasonal Allergies Seasonal Allergies: No Past Medical History Surgeries: Yes (dental) Respiratory: No Cardiac: No Neurological: No Reproductive Disorders: No Sexually Transmitted Disease: No HIV/AIDS: No Genitourinary: No Gastrointestinal: No Musculoskeletal: No Endocrine: Yes (DM TYPE 1) HEENT: No Cancer: No Psychosocial: No Integumentary: No Blood Disorders: No Family Medical History Reviewed Nursing Family Hx Physical Exam Vital Signs Vital Signs - First Documented 06/27/19 20:05 Temp 36.9 Pulse 98 Resp 20 B/P (MAP) 135/93 (107) Pulse Ox 99 Capillary Refill : Less Than 3 Seconds Height, Weight, BMI Height: 5'9.00" Weight: 145lbs. 8.0oz. 65.616386ob; 20.00 BMI Method:Stated General Appearance: No Apparent Distress, WD/WN Eyes: Bilateral Eye Normal Inspection, Bilateral Eye PERRL HEENT: PERRL/EOMI, TMs Normal, Normal ENT Inspection, Pharynx Normal Respiratory: Chest Non Tender, Lungs Clear, Normal Breath Sounds, No Accessory Muscle Use, No Respiratory Distress Cardiovascular: Regular Rate, Rhythm, No Edema, No Gallop, No JVD, No Murmur, Normal Peripheral Pulses Gastrointestinal: Normal Bowel Sounds, No Organomegaly, No Pulsatile Mass, Non Tender, Soft Extremity: Normal Capillary Refill Neurologic/Psychiatric: Alert, Oriented x3, Normal Mood/Affect Skin: Normal Color, Warm/Dry Progress/Results/Core Measures Suspected Sepsis Recent Fever Within 48 Hours: Yes Infection Criteria Present: Suspected New Infection New/Unexplained Altered Menta: Yes Sepsis Screen: Possible Severe Sepsis Risk SIRS Temperature: Pulse: 98 Respiratory Rate: 20 Laboratory Tests 06/27/19 20:10: White Blood Count 10.6 Blood Pressure 135 /93 Mean: 107 Laboratory Tests 06/27/19 20:10: Creatinine 1.53H, Platelet Count 260, Total Bilirubin 0.5 Results/Orders Lab Results Laboratory Tests Test 06/27/19 20:10 06/27/19 20:12 06/27/19 21:00 06/27/19 21:13 Range/Units White Blood Count 10.6 4.3-11.0 10^3/uL Red Blood Count 5.12 4.35-5.85 10^6/uL Hemoglobin 16.3 13.3-17.7 G/DL Hematocrit 47 40-54 % Mean Corpuscular Volume 92 80-99 FL Mean Corpuscular Hemoglobin 32 25-34 PG Mean Corpuscular Hemoglobin Concent 35 32-36 G/DL Red Cell Distribution Width 13.2 10.0-14.5 % Platelet Count 260 130-400 10^3/uL Mean Platelet Volume 10.6 H 7.4-10.4 FL Neutrophils (%) (Auto) 76 H 42-75 % Lymphocytes (%) (Auto) 13 12-44 % Monocytes (%) (Auto) 11 0-12 % Eosinophils (%) (Auto) 0 0-10 % Basophils (%) (Auto) 0 0-10 % Neutrophils # (Auto) 8.0 H 1.8-7.8 X 10^3 Lymphocytes # (Auto) 1.4 1.0-4.0 X 10^3 Monocytes # (Auto) 1.2 H 0.0-1.0 X 10^3 Eosinophils # (Auto) 0.0 0.0-0.3 10^3/uL Basophils # (Auto) 0.0 0.0-0.1 10^3/uL Sodium Level 136 135-145 MMOL/L Potassium Level 4.2 3.6-5.0 MMOL/L Chloride Level 104 98-107 MMOL/L Carbon Dioxide Level 7 *L 21-32 MMOL/L Anion Gap 25 H 5-14 MMOL/L Blood Urea Nitrogen 10 7-18 MG/DL Creatinine 1.53 H 0.60-1.30 MG/DL Estimat Glomerular Filtration Rate 58 BUN/Creatinine Ratio 7 Glucose Level 300 H 70-105 MG/DL Calcium Level 9.8 8.5-10.1 MG/DL Corrected Calcium 8.5-10.1 MG/DL Total Bilirubin 0.5 0.1-1.0 MG/DL Aspartate Amino Transf (AST/SGOT) 11 5-34 U/L Alanine Aminotransferase (ALT/SGPT) 19 0-55 U/L Alkaline Phosphatase 108 40-136 U/L Total Protein 8.5 H 6.4-8.2 GM/DL Albumin 4.9 H 3.2-4.5 GM/DL Amylase Level 43 25-125 U/L Lipase 17 8-78 U/L Glucometer 287 H 70-110 MG/DL Urine Color YELLOW Urine Clarity CLEAR Urine pH 5.0 5-9 Urine Specific [place] >=1.030 1.016-1.022 Urine Protein 1+ H NEGATIVE Urine Glucose (UA) 2+ H NEGATIVE Urine Ketones 3+ H NEGATIVE Urine Nitrite NEGATIVE NEGATIVE Urine Bilirubin NEGATIVE NEGATIVE Urine Urobilinogen 0.2 < = 1.0 MG/DL Urine Leukocyte Esterase NEGATIVE NEGATIVE Urine RBC (Auto) 1+ H NEGATIVE Urine RBC 0-2 /HPF Urine WBC NONE /HPF Urine Crystals NONE /LPF Urine Bacteria FEW H /HPF Urine Casts PRESENT /LPF Urine Hyaline Casts 10-25 H /LPF Urine Mucus NEGATIVE /LPF Urine Culture Indicated NO Blood Gas Puncture Site RIGHT RADIAL Blood Gas Patient Temperature 98.3 Arterial Blood pH 7.11 *L 7.37-7.43 Arterial Blood Partial Pressure CO2 24 L 35-45 MMHG Arterial Blood Partial Pressure O2 54 L 79-93 MMHG Arterial Blood HCO3 7 *L 23-27 MMOL/L Arterial Blood Total CO2 7.9 L 21.0-31.0 MMOL/L Arterial Blood Oxygen Saturation 85 L 94-100 % Arterial Blood Base Excess -20.6 L -2.5-2.5 MMOL/L Solomon Test YES-POS Blood Gas Ventilator Setting NO Blood Gas Inspired Oxygen ROOM AIR Test 06/27/19 22:11 Range/Units Glucometer 254 H 70-110 MG/DL Micro Results Microbiology 06/27/19 Influenza Types A,B Antigen (HAYDEE) - Final, Complete My Orders Orders - SANG ARMAS Comprehensive Metabolic Panel (06/27/19 20:24) Lipase (06/27/19 20:24) Amylase (06/27/19 20:24) Ua Culture If Indicated (06/27/19 20:24) Ed Iv/Invasive Line Start (06/27/19 20:24) Cbc With Automated Diff (06/27/19 20:24) Ns Iv 1000 Ml (Sodium Chloride 0.9%) (06/27/19 20:30) Ondansetron Injection (Zofran Injectio (06/27/19 20:30) Accucheck Stat ONCE (06/27/19 20:29) Insulin (Regular) Human (Humulin R (Per (06/27/19 21:15) Arterial Blood Gas (06/27/19 21:13) Ns Iv 1000 Ml (Sodium Chloride 0.9%) (06/27/19 21:30) Chest 1 View, Ap/Pa Only (06/27/19 21:33) Influenza A And B Antigens (06/27/19 21:34) Water (Sterile) For Injection (Sterile W (06/27/19 22:36) Medications Given in ED Current Medications Medications Dose Ordered Sig/Thu Route Start Time Stop Time Status Last Admin Dose Admin Insulin Human Regular 6 unit ONCE ONCE IV 06/27/19 21:15 06/27/19 21:16 DC 06/27/19 21:27 6 UNIT Ondansetron HCl 8 mg ONCE ONCE IVP 06/27/19 20:30 06/27/19 20:31 DC 06/27/19 20:39 8 MG Vital Signs/I&O 06/27/19 20:05 Temp 36.9 Pulse 98 Resp 20 B/P (MAP) 135/93 (107) Pulse Ox 99 Capillary Refill : Less Than 3 Seconds Blood Pressure Mean: 107 Point of Care Testing Finger Stick Blood Glucose: 287 Blood Glucose Action Taken: SANG NOTIFIED Progress Note : Time: 21:30 Progress Note I have seen and evaluated the patient. I've informed him of his laboratory findings. Hospital is on diversion at this time and the patient requested go to [facility]. I have contacted [facility] at this time and Dr. Gomez has agreed to accept the patient to his services. He recommends obtaining a chest x-ray and giving the patient a total of 2 L of fluid prior to transfer. Departure Impression Primary Impression: Diabetic ketoacidosis Disposition: T-TRM HOSP Condition: Stable Transfer Transfer Reason: Diversion Time Spoke to Accepting Phy: 21:30 Transfer Progress Notes Discussed the case with Dr. Gomez he agrees to accept the patient to his services. He recommends giving the patient 2 L of normal saline IV and obtaining a chest x-ray. Method of Transfer: EMS ([facility]) Departure-Patient Inst. Referrals: NO,LOCAL PHYSICIAN (PCP/Family) Primary Care Physician SANG ARMAS Jun 27, 2019 21:41
[2019-06-27] MEDS ORDERED: WATER (STERILE) FOR INJECTION 10 ML ONE (22:36)
[2019-06-27 23:16] VITALS: BP 119/71
--- NOTE | 2019-06-28 07:21 | Diagnostic Imaging Report ---
EXAM: CHEST 1 VIEW, AP/PA ONLY INDICATION: Lethargy. COMPARISON: None. FINDINGS: Radiopaque foreign body overlying the right hilum measuring up to 38 mm is indeterminate and may be external to the patient. Normal heart size and pulmonary vascularity. No dense consolidation, pleural effusion or pneumothorax. No acute osseous findings. IMPRESSION: 1. Metallic radiopaque foreign body overlying the right hilum may be external to the patient. Please correlate with history and physical exam. 2. Chest otherwise negative. Dictated by: Dictated on workstation # [id number]
== END 2019-06-27 23:16 | disposition short-term general hospital (02) ==
LOC: EDUNIT# 19:46 → ER 19:47
DX: E10.10 Type 1 diabetes mellitus with ketoacidosis without coma (principal); F17.210 Nicotine dependence, cigarettes, uncomplicated; Z91.19 Patient's noncompliance with other medical treatment and regimen; Z88.0 Allergy status to penicillin; Z79.4 Long term (current) use of insulin
CPT/HCPCS: 36415; 71045; 80053; 81000; 82150; 82805; 82962; 83690; 85025; 87804; 96374; 96375

== ENCOUNTER 2020-10-02 23:46 | Emergency (ER) | payer SELFPAY ==
[~2020-10-02 23:46] MED LIST changes: +ONDANSETRON 4 MG/2 ML (SDV) Z0FRAN ONE; +SCOPOLAMINE 1.5 MG (TRANSDERM-SCOP) PATCH ONE
[2020-10-03] MEDS ORDERED: NS IV 1000 ML 1,000 ML IV SCH
[2020-10-03] MEDS ORDERED: SCOPOLAMINE 1.5 MG (TRANSDERM-SCOP) PATCH TD ONE
[2020-10-03] MEDS ORDERED: ONDANSETRON 4 MG/2 ML (SDV) Z0FRAN IVP ONE
[2020-10-03 00:04] LABS: BASOPHILS % (AUTO) 0 % (0-10); EOSINOPHILS # (AUTO) 0.1 10^3/uL (0.0-0.3); EOSINOPHILS % (AUTO) 1 % (0-10); HEMATOCRIT 44 % (40-54); HEMOGLOBIN 15.8 g/dL (13.3-17.7); LYMPHOCYTES # (AUTO) 3.3 10^3/uL (1.0-4.0); LYMPHOCYTES % (AUTO) 27 % (12-44); MEAN CORPUSCULAR HEMOGLOBIN 31 pg (25-34); MEAN CORPUSCULAR HGB CONC 36 g/dL (32-36); MEAN CORPUSCULAR VOLUME 88 fL (80-99); MEAN PLATELET VOLUME 9.7 fL (9.0-12.2); MONOCYTES # (AUTO) 0.9 10^3/uL (0.0-1.0); MONOCYTES % (AUTO) 7 % (0-12); NEUTROPHILS % (AUTO) 65 % (42-75); PLATELET COUNT 268 10^3/uL (130-400); WHITE BLOOD COUNT 12.3 10^3/uL (4.3-11.0)
[2020-10-03 00:14] LABS: ALBUMIN 4.4 GM/DL (3.2-4.5); CHLORIDE 103 MMOL/L (98-107); POTASSIUM 3.4 MMOL/L (3.6-5.0); SODIUM 141 MMOL/L (135-145)
[2020-10-03 00:15] LABS: CALCIUM 9.3 MG/DL (8.5-10.1)
[2020-10-03 00:16] LABS: AMYLASE 66 U/L (25-125); GLUCOSE 90 MG/DL (70-105)
[2020-10-03 00:17] LABS: TOTAL PROTEIN 7.2 GM/DL (6.4-8.2)
[2020-10-03 00:18] LABS: BILIRUBIN,URINE NEGATIVE (NEGATIVE); CLARITY,URINE CLEAR; COLOR,URINE YELLOW; GLUCOSE, URINE (UA) NEGATIVE (NEGATIVE); KETONES,URINE NEGATIVE (NEGATIVE); LEUKOCYTE ESTERASE ,URINE NEGATIVE (NEGATIVE); NITRITE,URINE NEGATIVE (NEGATIVE); PROTEIN,URINE NEGATIVE (NEGATIVE)
[2020-10-03 00:18] LABS: BILIRUBIN,TOTAL 0.6 MG/DL (0.1-1.0); CARBON DIOXIDE 24 MMOL/L (21-32)
[2020-10-03 00:20] LABS: ALKALINE PHOSPHATASE 79 U/L (40-136); CREATININE SERUM 0.77 MG/DL (0.60-1.30); GFR ESTIMATED > 60
[2020-10-03 00:21] LABS: ACETAMINOPHEN < 10 UG/ML (10-30)
[2020-10-03 00:22] LABS: BUN/CREATININE RATIO 14
[2020-10-03 00:23] LABS: ALANINE AMINOTRANSFERASE 31 U/L (0-55); MAGNESIUM 2.1 MG/DL (1.6-2.4); SALICYLATE < 5.0 MG/DL (5.0-20.0)
[2020-10-03 00:25] LABS: LIPASE 25 U/L (8-78)
[2020-10-03 00:26] LABS: AMPHETAMINE SCREEN, URINE NEGATIVE (NEGATIVE); BARBITURATE SCREEN URINE NEGATIVE (NEGATIVE); BENZODIAZEPINES SCREEN URINE NEGATIVE (NEGATIVE); CANNABINOID SCREEN, URINE NEGATIVE (NEGATIVE); COCAINE SCREEN URINE NEGATIVE (NEGATIVE); METHADONE STAT NEGATIVE (NEGATIVE); METHAMPHETAMINE SCREEN URINE S POSITIVE (NEGATIVE); OPIATE SCREEN URINE NEGATIVE (NEGATIVE); OXYCODONE STAT NEGATIVE (NEGATIVE); PROPOXYPHENE STAT NEGATIVE (NEGATIVE); TRICYCLIC ANTIDEPRESSANTS SCRE NEGATIVE (NEGATIVE)
--- NOTE | 2020-10-03 00:26 | ED General ---
General Chief Complaint: Altered Mental Status Stated Complaint: ALTERED MENTAL STATUS Allergies and Home Medications Allergies Uncoded Allergies: PENICILLIN (Adverse Reaction, Unknown, has never had- siblings with unknown allergy, 05/08/18) Home Medications Insulin Aspart 300 Units/3 Ml Solution, 5 UNITS SQ AC Prescribed by: JASON CAMACHO on 05/08/18 1045 Insulin Detemir 100 Unit/1 Ml Insuln.pen, 10 UNIT SQ DAILY Prescribed by: JASON CAMACHO on 05/08/18 1045 Past Eblctxo-Wnbyds-Yafsrz Hx Patient Social History Alcohol Beverage of Choice: Whiskey Type Used: Cigarettes 2nd Hand Smoke Exposure: Yes Recent Hopitalizations: No Immunizations Up To Date Tetanus Booster (TDap): Less than 5yrs Seasonal Allergies Seasonal Allergies: No Past Medical History Surgeries: Yes (dental) Respiratory: No Cardiac: No Neurological: No Reproductive Disorders: No Sexually Transmitted Disease: No HIV/AIDS: No Genitourinary: No Gastrointestinal: No Musculoskeletal: No Endocrine: Yes (DM TYPE 1) HEENT: No Cancer: No Psychosocial: No Integumentary: No Blood Disorders: No Physical Exam Vital Signs Vital Signs - First Documented 10/03/20 00:26 Pulse Ox 100 O2 Delivery Non Rebreather O2 Flow Rate 15.00 FiO2 100 Capillary Refill : Height, Weight, BMI Height: 5'9.00" Weight: 145lbs. 8.0oz. 65.790593vd; 20.00 BMI Method:Stated Progress/Results/Core Measures Suspected Sepsis SIRS Temperature: Pulse: Respiratory Rate: Laboratory Tests 10/02/20 23:55: White Blood Count 12.3H Blood Pressure / Mean: Laboratory Tests 10/02/20 23:55: Creatinine 0.77, Platelet Count 268, Total Bilirubin 0.6 Results/Orders Lab Results Laboratory Tests Test 10/02/20 23:55 10/02/20 23:56 10/03/20 00:05 Range/Units White Blood Count 12.3 H 4.3-11.0 10^3/uL Red Blood Count 5.05 4.30-5.52 10^6/uL Hemoglobin 15.8 13.3-17.7 g/dL Hematocrit 44 40-54 % Mean Corpuscular Volume 88 80-99 fL Mean Corpuscular Hemoglobin 31 25-34 pg Mean Corpuscular Hemoglobin Concent 36 32-36 g/dL Red Cell Distribution Width 11.1 10.0-14.5 % Platelet Count 268 130-400 10^3/uL Mean Platelet Volume 9.7 9.0-12.2 fL Immature Granulocyte % (Auto) 0 % Neutrophils (%) (Auto) 65 42-75 % Lymphocytes (%) (Auto) 27 12-44 % Monocytes (%) (Auto) 7 0-12 % Eosinophils (%) (Auto) 1 0-10 % Basophils (%) (Auto) 0 0-10 % Neutrophils # (Auto) 8.0 H 1.8-7.8 10^3/uL Lymphocytes # (Auto) 3.3 1.0-4.0 10^3/uL Monocytes # (Auto) 0.9 0.0-1.0 10^3/uL Eosinophils # (Auto) 0.1 0.0-0.3 10^3/uL Basophils # (Auto) 0.0 0.0-0.1 10^3/uL Immature Granulocyte # (Auto) 0.1 0.0-0.1 10^3/uL Sodium Level 141 135-145 MMOL/L Potassium Level 3.4 L 3.6-5.0 MMOL/L Chloride Level 103 98-107 MMOL/L Carbon Dioxide Level 24 21-32 MMOL/L Anion Gap 14 5-14 MMOL/L Blood Urea Nitrogen 11 7-18 MG/DL Creatinine 0.77 0.60-1.30 MG/DL Estimat Glomerular Filtration Rate > 60 BUN/Creatinine Ratio 14 Glucose Level 90 70-105 MG/DL Calcium Level 9.3 8.5-10.1 MG/DL Corrected Calcium 9.0 8.5-10.1 MG/DL Magnesium Level 2.1 1.6-2.4 MG/DL Total Bilirubin 0.6 0.1-1.0 MG/DL Aspartate Amino Transf (AST/SGOT) 26 5-34 U/L Alanine Aminotransferase (ALT/SGPT) 31 0-55 U/L Alkaline Phosphatase 79 40-136 U/L Total Protein 7.2 6.4-8.2 GM/DL Albumin 4.4 3.2-4.5 GM/DL Amylase Level 66 25-125 U/L Lipase 25 8-78 U/L Salicylates Level < 5.0 L 5.0-20.0 MG/DL Acetaminophen Level < 10 L 10-30 UG/ML Serum Alcohol 207 H <10 MG/DL Glucometer 81 70-110 MG/DL Urine Color YELLOW Urine Clarity CLEAR Urine pH 7.0 5-9 Urine Specific [place] <=1.005 1.016-1.022 Urine Protein NEGATIVE NEGATIVE Urine Glucose (UA) NEGATIVE NEGATIVE Urine Ketones NEGATIVE NEGATIVE Urine Nitrite NEGATIVE NEGATIVE Urine Bilirubin NEGATIVE NEGATIVE Urine Urobilinogen 0.2 < = 1.0 MG/DL Urine Leukocyte Esterase NEGATIVE NEGATIVE Urine RBC (Auto) NEGATIVE NEGATIVE Urine RBC NONE /HPF Urine WBC NONE /HPF Urine Squamous Epithelial Cells RARE /HPF Urine Crystals NONE /LPF Urine Bacteria NEGATIVE /HPF Urine Casts NONE /LPF Urine Mucus NEGATIVE /LPF Urine Culture Indicated NO Urine Opiates Screen NEGATIVE NEGATIVE Urine Oxycodone Screen NEGATIVE NEGATIVE Urine Methadone Screen NEGATIVE NEGATIVE Urine Propoxyphene Screen NEGATIVE NEGATIVE Urine Barbiturates Screen NEGATIVE NEGATIVE Ur Tricyclic Antidepressants Screen NEGATIVE NEGATIVE Urine Phencyclidine Screen NEGATIVE NEGATIVE Urine Amphetamines Screen NEGATIVE NEGATIVE Urine Methamphetamines Screen POSITIVE H NEGATIVE Urine Benzodiazepines Screen NEGATIVE NEGATIVE Urine Cocaine Screen NEGATIVE NEGATIVE Urine Cannabinoids Screen NEGATIVE NEGATIVE My Orders Orders - KATHARINE KRUGER DO Ondansetron Injection (Zofran Injectio (10/02/20 23:43) Scopolamine Patch (Transderm-Scop Patch) (10/02/20 23:43) Accucheck Stat ONCE (10/02/20 23:55) Ed Iv/Invasive Line Start (10/02/20 23:55) Ekg Tracing (10/02/20 23:55) Catheter(Urinary) Insert & Ass (10/02/20 23:55) Monitor-Rhythm Ecg Trace Only (10/02/20 23:55) Acetaminophen (10/02/20 23:55) Alcohol (10/02/20 23:55) Amylase (10/02/20 23:55) Cbc With Automated Diff (10/02/20 23:55) Comprehensive Metabolic Panel (10/02/20 23:55) Drug Screen Stat (Urine) (10/02/20 23:55) Lipase (10/02/20 23:55) Magnesium (10/02/20 23:55) Ua Culture If Indicated (10/02/20 23:55) Ed Iv/Invasive Line Start (10/02/20 23:55) Ns Iv 1000 Ml (Sodium Chloride 0.9%) (10/03/20 00:00) Ondansetron Injection (Zofran Injectio (10/03/20 00:00) Scopolamine Patch (Transderm-Scop Patch) (10/03/20 00:00) Salicylate (10/02/20 23:55) Chest 1 View, Ap/Pa Only (10/03/20 00:01) D5 1/2 Ns W/Kcl 20 Meq/L (Dextrose 5%/0. (10/03/20 00:45) Medications Given in ED Current Medications Medications Dose Ordered Sig/Thu Route Start Time Stop Time Status Last Admin Dose Admin Ondansetron HCl 8 mg ONCE ONCE IVP 10/03/20 00:00 10/03/20 00:01 DC 10/03/20 00:02 8 MG Scopolamine 1.5 mg ONCE ONCE TD 10/03/20 00:00 10/03/20 00:01 DC 10/03/20 00:04 1.5 MG Vital Signs/I&O 10/03/20 00:26 Pulse Ox 100 O2 Delivery Non Rebreather O2 Flow Rate 15.00 FiO2 100 Capillary Refill : Point of Care Testing Finger Stick Blood Glucose: 81 Departure Impression Primary Impression: Alcohol intoxication Additional Impressions: IDDM (insulin dependent diabetes mellitus) Methamphetamine use Disposition: HOME, SELF-CARE Condition: Improved Departure-Patient Inst. Decision time for Depature: 01:15 Referrals: NO,LOCAL PHYSICIAN (PCP/Family) Primary Care Physician Patient Instructions: ALCOHOL AND SUBSTANCE ABUSE, Alcohol Intoxication ED, DIABETES, Drug Abuse Treatment, Methamphetamine Add. Discharge Instructions: NO DRUGS!!! NO ALCOHOL!!! TAKE YOUR MEDICATIONS PRESCRIBED FOLLOW UP WITH YOUR DR NEEDED All discharge instructions reviewed with patient and/or family. Voiced understanding. KATHARINE KRUGER DO October 03, 2020 00:26
[2020-10-03 00:27] LABS: BACTERIA,URINE NEGATIVE /HPF; SQUAMOUS EPITHELIAL CELL,UR RARE /HPF
[2020-10-03] MEDS ORDERED: D5 1/2 NS W/KCL 20 MEQ/L 1,000 ML IV SCH (00:45)
[2020-10-03 02:17] VITALS: BP 124/78
--- NOTE | 2020-10-03 06:49 | Diagnostic Imaging Report ---
HISTORY: Altered mental status and vomiting COMPARISON: 06/27/2019 TECHNIQUE: Frontal view of the chest FINDINGS: Lung volumes are normal. No focal consolidation is seen. There is no pleural effusion or pneumothorax. The cardiac silhouette is normal in size. IMPRESSION: 1. No acute pulmonary abnormality. Dictated by: Dictated on workstation # [id number]
== END 2020-10-03 02:17 | disposition home or self-care (01) ==
LOC: EDUNIT# 23:46 → ER 23:47
DX: F10.129 Alcohol abuse with intoxication, unspecified (principal); E10.9 Type 1 diabetes mellitus without complications; F15.90 Other stimulant use, unspecified, uncomplicated; Z77.22 Contact with and (suspected) exposure to environmental tobacco smoke (acute) (chronic); Z88.0 Allergy status to penicillin
CPT/HCPCS: 51702; 71045; 80053; 80306; 81000; 82150; 82947; 83690; 83735; 85025; 93005; 93041; 99284; G0480 ×3; 36415; 80320; 80329

== ENCOUNTER 2020-12-24 14:34 | Emergency (ER) | payer SELFPAY ==
[~2020-12-24] VITALS: Ht 170 cm; Wt 63.5 kg
[~2020-12-24 14:34] MED LIST changes: -ONDANSETRON 4 MG/2 ML (SDV) Z0FRAN ONE; -SCOPOLAMINE 1.5 MG (TRANSDERM-SCOP) PATCH ONE; -SULF1TAB35 PO; +SULF1TAB38 PO
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
--- NOTE | 2020-12-24 15:13 | Diagnostic Imaging Report ---
INDICATION: Injury to to the hands, punching a wall. TIME OF EXAM: 3:04 PM. TECHNIQUE: Three views of each hand were obtained. FINDINGS: Both hands are unremarkable. The metacarpals and phalanges are intact. No fractures are seen. The carpus is unremarkable. IMPRESSION: No acute bony abnormality is detected. Dictated by: Dictated on workstation # [id number]
[2020-12-24 15:38] VITALS: BP 124/70
== END 2020-12-24 15:38 | disposition home or self-care (01) ==
LOC: EDUNIT# 14:34 → ER 14:35
DX: M20.011 Mallet finger of right finger(s) (principal); S60.122A Contusion of left index finger with damage to nail, initial encounter; I10 Essential (primary) hypertension; E10.9 Type 1 diabetes mellitus without complications; F17.210 Nicotine dependence, cigarettes, uncomplicated; W23.0XXA Caught, crushed, jammed, or pinched between moving objects, initial encounter
CPT/HCPCS: 29130

== ENCOUNTER 2021-02-01 23:00 | Emergency (ER) | payer SELFPAY ==
[~2021-02-01] VITALS: Ht 177 cm; Wt 63.5 kg
[2021-02-02] MEDS ORDERED: LIDOCAINE 1% INJ 20 ML 20 ML VIAL INJ ONE (00:45)
[2021-02-02] MEDS ORDERED: TETANUS,DIPTH,PERTUSS P/F (BOOSTRIX) 0.5 ML VIAL IM ONE (00:45)
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
[2021-02-02 01:35] VITALS: BP 122/72
== END 2021-02-02 01:35 | disposition home or self-care (01) ==
LOC: EDUNIT# 23:00 → ER 23:02
DX: S01.81XA Laceration without foreign body of other part of head, initial encounter (principal); I10 Essential (primary) hypertension; E10.9 Type 1 diabetes mellitus without complications; Y04.2XXA Assault by strike against or bumped into by another person, initial encounter
CPT/HCPCS: 90471; 90715; 99284

== ENCOUNTER 2022-01-22 18:38 | Emergency (ER) | payer SELFPAY ==
[~2022-01-22] VITALS: Ht 175.2 cm; Wt 68.0 kg
[2022-01-22 18:44] VITALS: BP 120/68
[2022-01-22] MEDS ORDERED: RX-TRIMETH/SULFA. 160-800 MG (BACTRIM DS) TAB PPK#2 PO STA (18:55)
[2022-01-22] MEDS ORDERED: RX-MUPIROCIN (BACTROBAN) 2% OINT 22 GM TUBE TOP STA (18:55)
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
--- NOTE | 2022-01-22 19:27 | Diagnostic Imaging Report ---
CLINICAL INDICATION: Patient with right middle finger laceration. EXAM: X-ray of the right 3rd finger, 3 views. COMPARISONS: X-ray of both hands dated 12/24/2020. FINDINGS AND IMPRESSION: There is no fracture or dislocation. There is no radiodense foreign object. There is slight soft tissue irregularity involving the volar aspect of the soft tissue near the 3rd distal phalanx which may related to patient's laceration. Dictated by: Dictated on workstation # [id number]
[2022-01-22] MEDS ORDERED: SULF1TAB38 PO (19:33)
== END 2022-01-22 19:57 | disposition home or self-care (01) ==
LOC: EDUNIT# 18:38 → ER 18:41
DX: S61.212A Laceration without foreign body of right middle finger without damage to nail, initial encounter (principal); E10.9 Type 1 diabetes mellitus without complications; F17.210 Nicotine dependence, cigarettes, uncomplicated; Z28.310 Unvaccinated for COVID-19; W23.1XXA Caught, crushed, jammed, or pinched between stationary objects, initial encounter; Y99.0 Civilian activity done for income or pay
CPT/HCPCS: 73140; 99282

== ENCOUNTER 2022-03-08 01:48 | Emergency (ER) | payer SELFPAY ==
[2022-03-08] MEDS ORDERED: CLIN-144 PO (02:09)
--- NOTE | 2022-03-08 02:10 | ED EENT ---
History of Present Illness General Chief Complaint: Dental Problems/Pain Stated Complaint: DENTAL PAIN Source: patient Exam Limitations: no limitations History of Present Illness Date Seen by Provider: Mar 08, 2022 Time Seen by Provider: 01:55 Initial Comments 21-year-old male with no pertinent past medical history coming in due to dental pain. His top front teeth have been hurting him for the past couple of days, worse with any type of eating or touching it, better with rest as well as ibuprofen or Tylenol. He has not made an appointment with a dentist as of yet but plans to. Denies any fever or swelling. Otherwise denies any other acute complaints Allergies and Home Medications Allergies Uncoded Allergies: PENICILLIN (Adverse Reaction, Unknown, has never had- siblings with unknown allergy, 05/08/18) Patient Home Medication List Home Medication List Reviewed: Yes Insulin Aspart (Novolog Flexpen) 300 Units/3 Ml Solution, 5 UNITS SQ AC Prescribed by: JASON CAMACHO on 05/08/18 1045 Insulin Detemir (Levemir Flextouch) 100 Unit/1 Ml Insuln.pen, 10 UNIT SQ DAILY Prescribed by: JASON CAMACHO on 05/08/18 1045 Sulfamethoxazole/Trimethoprim (Bactrim Ds Tablet) 1 Each Tablet, 1 EACH PO BID Prescribed by: KATHARINE KRUGER on 01/22/221932 Review of Systems Review of Systems Constitutional: No fever Ears: No Symptoms Reported Nose: no symptoms reported Mouth: see HPI Throat: no symptoms reported Respiratory: no symptoms reported Cardiovascular: no symptoms reported Gastrointestinal: no symptoms reported Musculoskeletal: no symptoms reported Skin: no symptoms reported Neurological: No Symptoms Reported Hematologic/Lymphatic: No Symptoms Reported Immunological/Allergic: no symptoms reported All Other Systems Reviewed Negative Unless Noted: Yes Past Syjiamc-Wrydqt-Ewreyh Hx Patient Social History Substance use?: No Immunizations Up To Date Tetanus Booster (TDap): Less than 5yrs Seasonal Allergies Seasonal Allergies: No Past Medical History Surgery/Hospitalization HX: pmh: dm type 1, high cholesterol Surgeries: Yes (dental) Respiratory: No Cardiac: Yes High Cholesterol, Hypertension Neurological: No Reproductive Disorders: No Sexually Transmitted Disease: No HIV/AIDS: No Genitourinary: No Gastrointestinal: No Musculoskeletal: No Endocrine: Yes (DM TYPE 1) Diabetes, Insulin dep HEENT: No Cancer: No Psychosocial: No Integumentary: No Blood Disorders: No Family Medical History SOCIAL HISTORY: -ETOH--REGULAR/HEAVY USE -DRUGS--METH, DENIES IV USE--STATES HE SMOKES IT -SMOKES 1 PPD OF CIGARETTES Physical Exam Height, Weight, BMI Height: 5'9.00" Weight: 145lbs. 8.0oz. [id number]; 22.00 BMI Method:Stated General Appearance: WD/WN, no apparent distress Eyes: bilateral eye normal inspection Ears: bilateral ear auricle normal Nose: normal inspection Mouth/Throat: dental tenderness (Dental tenderness along teeth numbers 7 and 8 with no abscess, no trismus, normal voice, floor of mouth is soft, uvula midline) Neck: non-tender, full range of motion, supple, normal inspection Cardiovascular: regular rate, rhythm, no edema, no murmur Respiratory: chest non-tender, lungs clear, normal breath sounds, no respiratory distress, no accessory muscle use Gastrointestinal: normal bowel sounds, non tender, soft; No distended, No guarding, No rebound Neurologic/Psychiatric: no motor/sensory deficits, alert, normal mood/affect Skin: normal color, warm/dry Procedures/Interventions Suture Size: 5-0 Progress/Results/Core Measures Progress Progress Note : Progress Note 21-year-old male presenting for dental tenderness. No abscess or red flags. Allergic to penicillin so given clindamycin prescription and needs to follow-up with a dentist Departure Impression Primary Impression: Pain, dental Disposition: 01 HOME, SELF-CARE Condition: Stable Departure-Patient Inst. Decision time for Depature: 02:08 Referrals: [facility] (PCP/Family) Primary Care Physician Patient Instructions: Dental Pain Add. Discharge Instructions: The teeth do need to come out, and antibiotics will not truly fix the problem, but will help with the pain for now. Take ibuprofen and or Tylenol as needed for pain. Please schedule an appointment with a dentist as soon as possible Scripts Clindamycin HCl (Clindamycin HCl) 300 Mg Capsule 300 MG PO QID for 7 Days, #28 CAP Prov: LUIS SANDOVAL MD 03/08/22 Work/School Note: Work Release Form Date Seen in the Emergency Department: Mar 08, 2022 Return to Work: Mar 09, 2022 Restrictions: No Restrictions LUIS SANDOVAL MD Mar 08, 2022 02:09
[2022-03-08] MEDS ORDERED: CLINDAMYCIN 150 MG (CLEOCIN) CAP PO ONE (02:15)
[2022-03-08 02:19] VITALS: BP 112/76
== END 2022-03-08 02:19 | disposition home or self-care (01) ==
LOC: EDUNIT# 01:48 → ER 01:52
DX: K08.89 Other specified disorders of teeth and supporting structures (principal); E10.9 Type 1 diabetes mellitus without complications; F17.210 Nicotine dependence, cigarettes, uncomplicated; Z28.310 Unvaccinated for COVID-19

== ENCOUNTER 2022-12-07 22:49 | Emergency (ER) | payer SELFPAY ==
[~2022-12-07] VITALS: Ht 178 cm; Wt 56.7 kg
[~2022-12-07 22:49] MED LIST changes: +CLIN-144 PO; -INSU100I29 SQ; +INSU100I30 SQ
[2022-12-07 22:52] VITALS: BP 120/68
[2022-12-07] MEDS ORDERED: NS IV 1000 ML 1,000 ML IV STA (23:07)
--- NOTE | 2022-12-07 23:09 | ED General ---
General Chief Complaint: Lower Extremity Stated Complaint: SWOLLEN FEET Nursing Triage Note: c/o bilateral ankle swelling x2 days, denies injury. Source of Information: Patient Exam Limitations: No Limitations History of Present Illness Date Seen by Provider: Dec 07, 2022 Time Seen by Provider: 22:52 Initial Comments 22-year-old male presents to the emergency department today for bilateral foot swelling. His is concerned because he has type 1 diabetes and his sugars have been high lately. She states some have been over 600 and some down as low as 136. No fevers or chills. His feet have been swollen for the last week. No shortness of breath. He is urinating normally All other systems reviewed and negative except documented per HPI. Voice recognition software was used to help create this chart Allergies and Home Medications Allergies Uncoded Allergies: PENICILLIN (Adverse Reaction, Unknown, has never had- siblings with unknown allergy, 05/08/18) Patient Home Medication List Home Medication List Reviewed: Yes Clindamycin HCl (Clindamycin HCl) 300 Mg Capsule, 300 MG PO QID Prescribed by: LUIS SANDOVAL on 03/08/22 0209 Insulin Aspart (Novolog Flexpen) 300 Units/3 Ml Solution, 5 UNITS SQ AC Prescribed by: JASON CAMACHO on 05/08/18 1045 Insulin Detemir (Levemir Flextouch) 100 Unit/1 Ml Insuln.pen, 10 UNIT SQ DAILY Prescribed by: JASON CAMACHO on 05/08/18 1045 Sulfamethoxazole/Trimethoprim (Bactrim Ds Tablet) 1 Each Tablet, 1 EACH PO BID Prescribed by: KATHARINE KRUGER on 01/22/22 193 Review of Systems Review of Systems Constitutional: see HPI Past Zkgjcok-Gwotmb-Gejmam Hx Patient Social History Tobacco Use?: Yes Substance use?: No Alcohol Use?: No Pt feels they are or have been: No Immunizations Up To Date Tetanus Booster (TDap): Less than 5yrs First/Initial COVID19 Vaccinat: na Seasonal Allergies Seasonal Allergies: No Past Medical History Surgery/Hospitalization HX: pmh: dm type 1, high cholesterol, dental extraction Surgeries: Yes (dental) Respiratory: No Cardiac: Yes High Cholesterol, Hypertension Neurological: No Reproductive Disorders: No Sexually Transmitted Disease: No HIV/AIDS: No Genitourinary: No Gastrointestinal: No Musculoskeletal: No Endocrine: Yes (DM TYPE 1) Diabetes, Insulin dep HEENT: No Cancer: No Psychosocial: No Integumentary: No Blood Disorders: No Family Medical History SOCIAL HISTORY: -ETOH--REGULAR/HEAVY USE -DRUGS--METH, DENIES IV USE--STATES HE SMOKES IT -SMOKES 1 PPD OF CIGARETTES Physical Exam Vital Signs Vital Signs - First Documented 12/07/22 22:52 Temp 37.2 Pulse 99 Resp 16 B/P (MAP) 120/68 (85) Pulse Ox 99 O2 Delivery Room Air Capillary Refill : Less Than 3 Seconds Height, Weight, BMI Height: 5'9.00" Weight: 145lbs. 8.0oz. 65.603550mp; 17.00 BMI Method:Stated General Appearance: No Apparent Distress, WD/WN Eyes: Bilateral Eye Normal Inspection, Bilateral Eye PERRL, Bilateral Eye EOMI HEENT: Normal ENT Inspection, Pharynx Normal Neck: Full Range of Motion, Normal Inspection, Non Tender, Supple Respiratory: Chest Non Tender, Lungs Clear, Normal Breath Sounds, No Accessory Muscle Use, No Respiratory Distress Cardiovascular: Regular Rate, Rhythm, No Murmur, Normal Peripheral Pulses Gastrointestinal: Normal Bowel Sounds, No Organomegaly, No Pulsatile Mass, Non Tender, Soft Extremity: Normal Capillary Refill, Normal Range of Motion, Non Tender, No Calf Tenderness, Other (2+ pitting edema bilateral lower extremities.) Neurologic/Psychiatric: Alert, Oriented x3, Normal Mood/Affect Skin: Normal Color, Warm/Dry Procedures/Interventions Suture Size: 5-0 Progress/Results/Core Measures Suspected Sepsis SIRS Temperature: Pulse: 99 Respiratory Rate: 16 Laboratory Tests 12/07/22 23:01: White Blood Count 6.1 Blood Pressure 120 /68 Mean: 85 Laboratory Tests 12/07/22 23:01: Creatinine 0.93, Platelet Count 261 Results/Orders Lab Results Laboratory Tests Test 12/07/22 23:01 12/07/22 23:07 Range/Units White Blood Count 6.1 4.3-11.0 10^3/uL Red Blood Count 3.95 L 4.30-5.52 10^6/uL Hemoglobin 12.7 L 13.3-17.7 g/dL Hematocrit 37 L 40-54 % Mean Corpuscular Volume 93 80-99 fL Mean Corpuscular Hemoglobin 32 25-34 pg Mean Corpuscular Hemoglobin Concent 35 32-36 g/dL Red Cell Distribution Width 11.6 10.0-14.5 % Platelet Count 261 130-400 10^3/uL Mean Platelet Volume 10.2 9.0-12.2 fL Immature Granulocyte % (Auto) 0 % Neutrophils (%) (Auto) 44 42-75 % Lymphocytes (%) (Auto) 46 H 12-44 % Monocytes (%) (Auto) 8 0-12 % Eosinophils (%) (Auto) 1 0-10 % Basophils (%) (Auto) 1 0-10 % Neutrophils # (Auto) 2.7 1.8-7.8 10^3/uL Lymphocytes # (Auto) 2.8 1.0-4.0 10^3/uL Monocytes # (Auto) 0.5 0.0-1.0 10^3/uL Eosinophils # (Auto) 0.1 0.0-0.3 10^3/uL Basophils # (Auto) 0.1 0.0-0.1 10^3/uL Immature Granulocyte # (Auto) 0.0 0.0-0.1 10^3/uL Sodium Level 134 L 135-145 MMOL/L Potassium Level 4.3 3.6-5.0 MMOL/L Chloride Level 99 98-107 MMOL/L Carbon Dioxide Level 23 21-32 MMOL/L Anion Gap 12 5-14 MMOL/L Blood Urea Nitrogen 27 H 7-18 MG/DL Creatinine 0.93 0.60-1.30 MG/DL Estimat Glomerular Filtration Rate 118 BUN/Creatinine Ratio 29 Calcium Level 8.8 8.5-10.1 MG/DL Urine Color YELLOW Urine Clarity CLEAR Urine pH 6.5 5-9 Urine Specific [place] <=1.005 1.016-1.022 Urine Protein NEGATIVE NEGATIVE Urine Glucose (UA) 3+ H NEGATIVE Urine Ketones NEGATIVE NEGATIVE Urine Nitrite NEGATIVE NEGATIVE Urine Bilirubin NEGATIVE NEGATIVE Urine Urobilinogen 0.2 < = 1.0 MG/DL Urine Leukocyte Esterase NEGATIVE NEGATIVE Urine RBC (Auto) NEGATIVE NEGATIVE Urine RBC NONE /HPF Urine WBC NONE /HPF Urine Squamous Epithelial Cells NONE /HPF Urine Crystals NONE /LPF Urine Bacteria NEGATIVE /HPF Urine Casts NONE /LPF Urine Mucus NEGATIVE /LPF Urine Culture Indicated NO My Orders Orders - VIRGINIA MARCUS DO Basic Metabolic Panel (12/07/22 23:00) Cbc With Automated Diff (12/07/22 23:00) Beta Hydroxybutyrate (12/07/22 23:00) Ua Culture If Indicated (12/07/22 23:00) Ns Iv 1000 Ml (Sodium Chloride 0.9%) (12/07/22 23:07) Vital Signs/I&O 12/07/22 22:52 Temp 37.2 Pulse 99 Resp 16 B/P (MAP) 120/68 (85) Pulse Ox 99 O2 Delivery Room Air Capillary Refill : Less Than 3 Seconds Blood Pressure Mean: 85 Departure Communication (Admissions) Patient checked his blood sugar on his implanted device on arrival and it is greater than 600. We will go ahead and start an IV, check for DKA and give him IV fluids. He is bolused himself with 10u insulin via his device. Blood sugar is 511. It has been chronically elevated for the last week or so. His bicarb is normal, no evidence for acidosis. Vital signs are normal as well. Kidney function is normal. We gave him some IV fluids here and he bolused himself with insulin and his blood sugars are trending down. He is stable for discharge home at this time. Unclear etiology of leg swelling but his did state that currently they are without air conditioning in the house and has been over 100 degrees outside. I think this is likely combination of heat and being less ambulatory secondary to elevated glucose lately. Advised frequent ambulation, elevation of his legs and follow-up with primary care doctor should symptoms persist. Impression Primary Impression: Hyperglycemia Disposition: 01 HOME, SELF-CARE Condition: Stable Departure-Patient Inst. Referrals: [facility] (PCP/Family) Primary Care Physician Patient Instructions: High Blood Sugar, Adult ED Add. Discharge Instructions: Her blood sugars are elevated but there is no evidence for diabetic ketoacidosis or DKA. Continue to use your sliding scale, increase your fluids at home. Regarding her leg swelling there is no evidence for an emergent condition and your kidney function is normal. I recommend you walk as much as possible as this will likely help with the swelling. Elevate your legs when you are not walking. You may try to wrap them with Nasim wraps as well which could help. Follow-up with your primary doctor should your symptoms persist and if your blood sugars remain elevated. Return to the emergency department for any severe concerns. All discharge instructions reviewed with patient and/or family. Voiced understanding. VIRGINIA MARCUS DO Dec 07, 2022 23:09
[2022-12-07 23:11] LABS: BASOPHILS # (AUTO) 0.1 10^3/uL (0.0-0.1); BASOPHILS % (AUTO) 1 % (0-10); EOSINOPHILS # (AUTO) 0.1 10^3/uL (0.0-0.3); EOSINOPHILS % (AUTO) 1 % (0-10); HEMATOCRIT 37 % (40-54); HEMOGLOBIN 12.7 g/dL (13.3-17.7); LYMPHOCYTES # (AUTO) 2.8 10^3/uL (1.0-4.0); LYMPHOCYTES % (AUTO) 46 % (12-44); MEAN CORPUSCULAR HEMOGLOBIN 32 pg (25-34); MEAN CORPUSCULAR HGB CONC 35 g/dL (32-36); MEAN CORPUSCULAR VOLUME 93 fL (80-99); MEAN PLATELET VOLUME 10.2 fL (9.0-12.2); MONOCYTES # (AUTO) 0.5 10^3/uL (0.0-1.0); MONOCYTES % (AUTO) 8 % (0-12); NEUTROPHILS # (AUTO) 2.7 10^3/uL (1.8-7.8); NEUTROPHILS % (AUTO) 44 % (42-75); PLATELET COUNT 261 10^3/uL (130-400); WHITE BLOOD COUNT 6.1 10^3/uL (4.3-11.0)
[2022-12-07 23:16] LABS: BILIRUBIN,URINE NEGATIVE (NEGATIVE); CLARITY,URINE CLEAR; COLOR,URINE YELLOW; GLUCOSE, URINE (UA) 3+ (NEGATIVE); KETONES,URINE NEGATIVE (NEGATIVE); LEUKOCYTE ESTERASE ,URINE NEGATIVE (NEGATIVE); NITRITE,URINE NEGATIVE (NEGATIVE); PH,URINE 6.5 (5-9); PROTEIN,URINE NEGATIVE (NEGATIVE)
[2022-12-07 23:22] LABS: POTASSIUM 4.3 MMOL/L (3.6-5.0)
[2022-12-07 23:23] LABS: CALCIUM 8.8 MG/DL (8.5-10.1)
[2022-12-07 23:27] LABS: BACTERIA,URINE NEGATIVE /HPF
[2022-12-07 23:27] LABS: CREATININE SERUM 0.93 MG/DL (0.60-1.30)
== END 2022-12-07 23:37 | disposition home or self-care (01) ==
LOC: EDUNIT# 22:49 → ER 22:50
DX: E10.65 Type 1 diabetes mellitus with hyperglycemia (principal); F17.210 Nicotine dependence, cigarettes, uncomplicated; Z28.310 Unvaccinated for COVID-19
CPT/HCPCS: 36415; 80048; 81000; 82010; 85025